=== PATIENT | female | born 1950 | race Caucasian/White ===

== ENCOUNTER → 2019-06-16 12:32 | Outpatient (CLI) | payer MEDICARE, SELFPAY ==
--- NOTE | 2019-06-16 | DI.US.S_ITS ---
LIMITED ULTRASOUND OF RIGHT BREAST AND AXILLA: 06/16/2019 CLINICAL: Palpable right breast lump. Comparison is made to exams dated: 06/16/2019 mammogram - [facility], 06/17/2015 mammogram, 06/23/2013 mammogram, and 03/28/2011 mammogram - [facility]. Color flow and real-time ultrasound of the right breast axilla were performed on the areas of interest. There is a 1.5 cm x 1.4 cm x 1.4 cm oval mass with a circumscribed margin in the right breast at 9 o'clock middle depth. This oval mass is hypoechoic with a well-defined boundary and posterior acoustic shadowing. Color flow imaging demonstrates that there is no vascularity present. There also is a 1 cm x 0.6 cm x 1.1 cm oval mass with a circumscribed margin in the right breast at 1:30 o'clock middle depth. This oval mass is hypoechoic with a well-defined boundary and posterior acoustic enhancement. This correlates as palpated. Color flow imaging demonstrates that there is no vascularity present. Additionally, there is a 2 cm x 1 cm x 1.6 cm oval cyst with debris in the right breast at 1 o'clock middle depth. This oval cyst with debris is hypoechoic with a well-defined boundary and posterior acoustic enhancement. Color flow imaging demonstrates that there is no vascularity present. In addition, there is a 2.7 cm x 1.6 cm x 2.8 cm oval complicated cyst in the right breast at 7 o'clock in the retroareolar region. This oval complicated cyst is hypoechoic but of mixed echogenicity with a well-defined boundary. This correlates with mammography findings. Color flow imaging demonstrates that there is no vascularity present. In addition, there are multiple benign oval lymph nodes in the right axillary tail. These oval lymph nodes are of mixed echogenicity with fatty hilum. Color flow imaging demonstrates that there is no increase in vascularity. IMPRESSION: SUSPICIOUS OF MALIGNANCY The 1.5 cm x 1.4 cm x 1.4 cm oval mass in the right breast at 9 o'clock middle depth is at a moderate suspicion for malignancy. An ultrasound guided biopsy is recommended. The 1 cm x 0.6 cm x 1.1 cm oval mass in the right breast at 1:30 o'clock middle depth is at a low suspicion for malignancy. An ultrasound guided biopsy is recommended. The 2 cm x 1 cm x 1.6 cm oval cyst with debris in the right breast at 1 o'clock middle depth is consistent with a complicated cyst and is probably benign. A follow-up ultrasound in 6 months is recommended. The 2.7 cm x 1.6 cm x 2.8 cm oval complicated cyst in the right breast at 7 o'clock in the retroareolar region is consistent with a complicated cyst and is probably benign. A follow-up ultrasound in 6 months is recommended. The multiple oval lymph nodes in the right axilla are within normal size limits and appear benign. The findings were discussed with the patient at the conclusion of the study by Dr. Mccabe. This exam was interpreted at Station ID: [id number]. Electronically Signed By: Emanuel yang/:06/16/2019 15:12:32 letter sent: Biopsy Required Ultrasound BI-RADS: 4b Moderate suspicion of malignancy
--- NOTE | 2019-06-16 | DI.MG.S_ITS ---
BILATERAL DIGITAL DIAGNOSTIC MAMMOGRAM 3D/2D: 06/16/2019 CLINICAL: Right breast lump. Comparison is made to exams dated: 06/17/2015 mammogram, 06/23/2013 mammogram, and 03/28/2011 mammogram - [facility]. The tissue of both breasts is heterogeneously dense. This may lower the sensitivity of mammography. There is a 2 cm oval equal density mass with an obscured and circumscribed margin in the right breast at 12 o'clock anterior depth. There also is a 2.9 cm oval equal density mass with an obscured and circumscribed margin in the right breast central to the nipple anterior depth. No other significant masses, calcifications, or other findings are seen in either breast. IMPRESSION: INCOMPLETE: NEEDS ADDITIONAL IMAGING EVALUATION The 2 cm oval equal density mass in the right breast at 12 o'clock anterior depth is indeterminate. An ultrasound is recommended. The 2.9 cm oval equal density mass in the right breast central to the nipple anterior depth is indeterminate. An ultrasound is recommended. This exam was interpreted at Station ID: [id number]. NOTE: For mammograms, a report in lay terms will be sent to the patient. Approximately 15% of breast malignancies will not be visualized mammographically. In the management of a palpable breast mass, a negative mammogram must not discourage biopsy of a clinically suspicious lesion. Electronically Signed By: Emanuel yang/emma:06/16/2019 13:50:38 ACR BI-RADS Category 0: Incomplete [id number]
== END ==
PROVIDERS: Visit Provider Internal Medicine
DX: R92.8 Other abnormal and inconclusive findings on diagnostic imaging of breast (principal); N63.15 Unspecified lump in the right breast, overlapping quadrants; N63.12 Unspecified lump in the right breast, upper inner quadrant; N60.01 Solitary cyst of right breast
CPT/HCPCS: 76642; 77066; G0279

== ENCOUNTER → 2019-07-15 07:35 | Outpatient (CLI) | payer MEDICARE, SELFPAY ==
--- NOTE | 2019-07-15 | DI.US.S_ITS ---
MULTIPLE ULTRASOUND GUIDED BIOPSIES RIGHT BREAST USING VACUUM DEVICE WITH MARKING DEVICES INSERTED: 07/15/2019 CLINICAL: Right breast masses x 2. PATIENT CONSENT: Risks (minor bleeding, infection, vasovagal reaction and repeat procedure), benefits and alternatives were explained to the patient and written informed consent was obtained. Correlation is made to exams dated: 06/16/2019 ultrasound, 06/16/2019 mammogram - [facility], 06/17/2015 mammogram, and 06/23/2013 mammogram [facility]. An ultrasound guided biopsy using real-time ultrasound was performed for the mass located in the right breast at 1 o'clock posterior depth. The skin was prepped in the usual manner. Local anesthetic was administered to the access site. The abnormality was approached from the lateral aspect. A biopsy needle was placed adjacent to the abnormality under ultrasound guidance. Once the needle was documented to be in the correct location, six specimens were obtained using the Mammotome biopsy system. A clip was inserted into the biopsy cavity. The specimens were sent to the laboratory for pathological analysis. A second ultrasound guided biopsy using real-time ultrasound was performed for the mass located in the right breast at 9 o'clock posterior depth. The skin was prepped in the usual manner. Local anesthetic was administered to the access site. A biopsy needle was placed adjacent to the abnormality under ultrasound guidance. Once the needle was documented to be in the correct location, six specimens were obtained using the Mammotome biopsy system. A clip was inserted into the biopsy cavity. The specimens were sent to the laboratory for pathological analysis. IMPRESSION: ULTRASOUND GUIDED BIOPSY BENIGN Ultrasound guided biopsy of the mass in the right breast at 1 o'clock posterior depth was successful. Pathology indicates benign apocrine metaplasia (AM), fibrocystic changes (FC), and stromal fibrosis. Pathology results are concordant with imaging findings. Ultrasound guided biopsy of the mass in the right breast at 9 o'clock posterior depth was successful. Pathology indicates benign apocrine metaplasia (AM), fibrocystic changes (FC), and stromal fibrosis. Pathology results are concordant with imaging findings. A follow-up right ultrasound in 6 months is recommended to demonstrate stability of other probably benign lesions in the right breast at the 1:00 and 7:00 positions. This exam was interpreted at Station ID: [id number]. Morteza moscoso,angely/:07/22/2019 14:09:00
--- NOTE | 2019-07-15 | PATH_ITS ---
[facility] Accession Number: [id number] . 01 Material submitted: . PART A: breast - RIGHT BREAST MASS 1:30 6 CM FN PART B: breast - RIGHT BREAST MASS 9:00 4 CM FN . 02 Diagnosis: A. Right Breast Mass, 1:30, 6 cm from Nipple, Needle Core Biopsy: Benign breast parenchyma with fibrocystic changes consisting of cystic dilatation of terminal ductules, apocrine metaplasia, ductal hyperplasia without atypia, and stromal fibrosis. There are several foci of reactive change that could relate to previous instrumentation or a ruptured cyst lining. Negative for epithelial atypia, carcinoma in situ or malignancy. . B. Right Breast Mass, 9 o'clock, 4 cm from Nipple, Needle Core Biopsy: Benign breast parenchyma with fibrocystic changes consisting of cystic dilatation of terminal ductules, apocrine metaplasia, ductal hyperplasia without atypia, and stromal fibrosis. Foci suggestive of previous instrumentation or ruptured cyst are present. Negative for epithelial atypia, carcinoma in situ or malignancy. MRV 07/18/2019 1556 Local . 02 Comment: QA performed by Dr. Israel Campos. . 02 Electronically signed: . Rosy Stallworth MD, Pathologist NPI- [id number] . 01 Gross description: . Received two formalin-filled containers, both labeled with the patient's name: . A. In a container labeled #1. 1:30, the specimen is received with a plastic filter in container, sample loose in container and consists of six 0.1-0.3 cm, light yellow-loya, cylindrical-shaped portions of tissue which range in length from 1.0 cm to 1.8 cm. The specimen is entirely submitted in cassettes A1 and A2. B. In a container labeled #2. 9 o'clock, the specimen is received with a plastic filter in container, sample loose in container and consists of five 0.2-0.3 cm in diameter, light yellow-loya, rough, cylindrical shaped portions of tissue which range in length from 0.8 cm to 1.2 cm The specimen is entirely submitted in cassettes B1 and B2. . Collection date per requisition: 07/15/19. Collection time: Container A - 8:58 a.m.; container B - 9:15 a.m. Total fixation time: Approximately 41 hours. ([id number]) /[facility] 07/16/2019 0946 Local . 02 Pathologist provided ICD-10: N64.9 . 02 CPT . 610725, [id number] Performed at: [facility] [address] [id number] MD Emanuel Menendez MD Phone: [phone] Performed at: [facility] [address] [place], [place] [id number] MD Yvonne Kruse MD Phone: [phone]
--- NOTE | 2019-07-15 | DI.MG.S_ITS ---
UNILATERAL RIGHT DIGITAL DIAGNOSTIC MAMMOGRAM POST-NEEDLE BIOPSY: 07/15/2019 CLINICAL: Right breast mass. Comparison is made to exams dated: 06/16/2019 mammogram - [facility], 06/17/2015 mammogram, and 06/23/2013 mammogram - [facility]. The tissue of right breast is heterogeneously dense. This may lower the sensitivity of mammography. There is a marker clip in the appropriate position in the right breast at 1 o'clock posterior depth. This marker clip placement is at the biopsy site. There also is a marker clip in the appropriate position in the right breast at 9 o'clock posterior depth. This marker clip placement is at the biopsy site. IMPRESSION: POST PROCEDURE MAMMOGRAM FOR MARKER PLACEMENT There was a successful marker clip placement in the right breast at 1 o'clock posterior depth. There was a successful marker clip placement in the right breast at 9 o'clock posterior depth. This exam was interpreted at Station ID: [id number]. NOTE: For mammograms, a report in lay terms will be sent to the patient. Approximately 15% of breast malignancies will not be visualized mammographically. In the management of a palpable breast mass, a negative mammogram must not discourage biopsy of a clinically suspicious lesion. Electronically Signed By: Morteza moscoso/:07/15/2019 14:28:23 ACR BI-RADS Category Post-procedure mammogram for marker placement
== END ==
PROVIDERS: PCP Internal Medicine; Visit Provider Internal Medicine
DX: N60.81 Other benign mammary dysplasias of right breast (principal); N60.31 Fibrosclerosis of right breast
CPT/HCPCS: 19083; 19084; 77065

== ENCOUNTER → 2019-09-01 13:52 | Outpatient (CLI) | payer OTHER, SELFPAY ==
--- NOTE | 2019-09-01 | DI.RAD.S_ITS ---
PROCEDURE: XR THORACIC SPINE 2V INDICATIONS: FLANK PAIN/ABD PAIN TECHNIQUE: 2 views of the thoracic spine were acquired. COMPARISON: None. FINDINGS: Bones: No fractures or dislocations. No suspicious bony lesions. Multilevel degenerative endplate sclerosis and spurring. Diffuse facet arthropathy. Soft tissues: No paravertebral stripe thickening. IMPRESSION: No fracture. Mild diffuse discogenic changes. Dictated by: Morteza Mccabe M.D. on 09/01/2019 at 15:46 Approved by: Morteza Mccabe M.D. on 09/01/2019 at 15:49
--- NOTE | 2019-09-01 | DI.RAD.S_ITS ---
PROCEDURE: XR HIP W PEL IF DONE LT 2V INDICATIONS: FLANK PAIN/ABD PAIN TECHNIQUE: AP pelvis with lateral view(s) of the left hip(s). COMPARISON: None. FINDINGS: Bones: No fractures or dislocations. Pelvic ring appears intact. No suspicious bony lesions. Mild bilateral hip joint degeneration. Soft tissues: The visualized bowel gas pattern is normal. No suspicious soft tissue calcifications. IMPRESSION: Mild bilateral hip degeneration. If the patient's pain or other symptoms persist, consider further evaluation with MRI Dictated by: Morteza Mccabe M.D. on 09/01/2019 at 16:14 Approved by: Morteza Mccabe M.D. on 09/01/2019 at 16:15
--- NOTE | 2019-09-01 | DI.RAD.S_ITS ---
PROCEDURE: XR LUMBAR SPINE 2-3V INDICATIONS: FLANK PAIN/ABD PAIN TECHNIQUE: 3 views of the lumbar spine were acquired. COMPARISON: None. FINDINGS: Bones: No fracture or focal osseous destruction. Multilevel degenerative endplate sclerosis and spurring. Diffuse facet arthropathy. Mild levocurvature. Soft tissues: Overlying bowel gas pattern is normal. No suspicious soft tissue calcifications. IMPRESSION: No fracture identified. Mild lumbar spondylosis and facet disease Dictated by: Morteza Mccabe M.D. on 09/01/2019 at 15:45 Approved by: Morteza Mccabe M.D. on 09/01/2019 at 15:46
[2019-09-01 14:21] LABS: Add Manual Diff / Slide Review NO; Basophils Absolute Auto 100 /uL (0-100); Basophils Percent Auto 0.9 % (0-2); Eosinophils Absolute Auto 100 /uL (0-450); Hematocrit 41.7 % (36-46); Hemoglobin 14.2 g/dL (12.0-16.0); Lymphocytes Absolute Auto 1200 /uL (1100-4500); Lymphocytes Percent Auto 21.4 % (25-40); Mean Corpuscular Hemoglobin 28.9 PG (26-34); Monocytes Absolute Auto 300 /uL (0-900); Neutrophils Absolute Auto 4100 /uL (1500-7000); Neutrophils Percent Auto 70.7 % (50-75); Platelet Count 283 X10^3/uL (150-400); Red Blood Cell Count 4.91 X10^6/uL (4.0-5.2); Red Cell Distribution Width 14.1 % (11.6-14.8); White Blood Cell Count 5.8 X10^3/uL (4.5-11.0)
[2019-09-01 14:33] LABS: Alanine Aminotransferase 23 IU/L (<35); Albumin 4.8 g/dL (3.5-5.0); Albumin Globulin Ratio 1.5 (1.0-2.8); Alkaline Phosphatase 109 U/L (38-126); Amylase 46 U/L (30-110); Aspartate Aminotransferase 29 IU/L (14-36); Bilirubin Total 0.5 mg/dL (0.2-1.3); Blood Urea Nitrogen 16 mg/dL (7-17); Calcium 9.8 mg/dL (8.4-10.2); Carbon Dioxide 22 mmol/L (22-32); Chloride 107 mmol/L (98-107); Estimated Glomerular Filt Rate > 60.0 mL/min (>60); Globulin 3.2 g/dL (1.7-4.1); Glucose 105 mg/dL (80-110); HEMOLYSIS < 15 (0-50); Lipase 70 U/L (23-300); Sodium 140 mmol/L (137-145)
--- NOTE | 2019-09-01 14:42 | DI.CT.S_ITS ---
PROCEDURE: CT ABDOMEN PELVIS W CON INDICATIONS: FLANK PAIN/ABD PAIN TECHNIQUE: After the administration of oral and intravenous contrast, 5 mm thick sections acquired from the diaphragms to the symphysis. 5 mm thick coronal and sagittal reformats were performed. For radiation dose reduction, the following was used: automated exposure control, adjustment of mA and/or kV according to patient size. COMPARISON: None. FINDINGS: Image quality: Excellent. ABDOMEN: Lung bases: Lung bases are clear. Heart size is normal. Right breast 2.2 cm lesion is noted, image 1/2 and recommend correlation to recent mammographic and ultrasound studies. Solid organs: Liver is normal in size and enhancement. Gallbladder surgically absent. Biliary system is non-dilated. Pancreas enhances normally. Spleen is normal in size and enhancement. No adrenal nodules. No evidence of left-sided urinary obstruction. Left kidney is unremarkable. Bilateral moderate right hydroureteronephrosis related to a 4 mm calculus at the right ureterovesical junction on image 82/2. No bladder calculus is identified Peritoneum and bowel: Stomach, small bowel, and colon loops are normal in caliber and wall thickness. No free fluid or air. Normal appendix. Nodes and vessels: No retroperitoneal or mesenteric adenopathy. Aorta and inferior vena cava are normal in caliber. Miscellaneous: No ventral hernias. PELVIS: Genitourinary: Bladder wall thickness is normal. Miscellaneous: No inguinal hernias or adenopathy. Bones: No suspicious bony lesions. No vertebral body compression fractures. IMPRESSION: Mild to moderately obstructive right ureterovesical junction calculus as above Dictated by: Morteza Mccabe M.D. on 09/01/2019 at 16:27 Approved by: Morteza Mccabe M.D. on 09/01/2019 at 16:35
== END ==
PROVIDERS: PCP Internal Medicine; Visit Provider Internal Medicine
DX: R10.9 Unspecified abdominal pain (principal); R10.32 Left lower quadrant pain; S70.02XA Contusion of left hip, initial encounter; N20.1 Calculus of ureter; M47.816 Spondylosis without myelopathy or radiculopathy, lumbar region; M47.814 Spondylosis without myelopathy or radiculopathy, thoracic region; W19.XXXA Unspecified fall, initial encounter; Z90.49 Acquired absence of other specified parts of digestive tract
CPT/HCPCS: 36415; 72070; 72100; 73502; 74177; 80053; 82150; 83690; 85025; Q9967

== ENCOUNTER → 2019-11-16 19:51 | Outpatient (CLI) | payer OTHER, SELFPAY ==
--- NOTE | 2019-11-16 | DI.MRI.S_ITS ---
PROCEDURE: MR HEAD/BRAIN WO CON INDICATIONS: CONTUSION OF RIGHT EYELID AND PERIOCULAR AREA TECHNIQUE: Non-contrast axial T1 spin echo, axial T2 fast spin echo, sagittal and axial FLAIR, coronal T2 fast spin echo, axial gradient echo, axial diffusion and ADC through the brain. COMPARISON: None. FINDINGS: Image quality: Excellent. CSF spaces: Ventricles appear symmetric in size and shape. Basal cisterns are patent. No extra-axial fluid collections. Brain: No intracranial bleeds or mass effects. There is mild cerebral volume loss for age. There are moderate chronic small vessel ischemic changes in periventricular and subcortical white matter, as well as dariela. Brainstem appears normal. Diffusion-weighted images show no acute ischemic insults. No chronic ischemic insults. Normal intravascular flow voids are present. Skull and face: Calvarial bone marrow is normal in signal. Orbits are normal. Sinuses: Sinuses are clear. There is fluid in the right mastoids. A small mucus retention cyst is noted in the posterior oropharynx. IMPRESSION: 1. No acute intracranial abnormalities. 2. Cerebral volume loss and chronic microvascular ischemic changes. 3. Fluid in the right mastoids. Recommend clinical correlation for mastoiditis. Dictated by: Parth Mills M.D. on 11/17/2019 at 8:11 Approved by: Parth Mills M.D. on 11/17/2019 at 14:53
== END ==
PROVIDERS: PCP Internal Medicine; Referring Provider Internal Medicine; Visit Provider Internal Medicine
DX: S00.11XA Contusion of right eyelid and periocular area, initial encounter (principal); X58.XXXA Exposure to other specified factors, initial encounter
CPT/HCPCS: 70551

== ENCOUNTER → 2020-05-15 11:54 | Outpatient (CLI) | payer OTHER, SELFPAY ==
--- NOTE | 2020-05-15 | DI.MRI.S_ITS ---
PROCEDURE: MR KNEE LT WO CON INDICATIONS: Other tear of medial meniscus, current injury TECHNIQUE: Noncontrast sagittal PD fast spin echo and T2 fast spin echo with fat saturation, sagittal 3-D FLASH with fat saturation; coronal T1 spin echo and PD fast spin echo with fat saturation, and axial PD fast spin echo with fat saturation through the knee. COMPARISON: None. FINDINGS: Image quality: Excellent. Menisci: Medial extrusion of the medial meniscus is present. Amorphous high signal intensity within the medial meniscal body is present demonstrating inferior and superior articular surface extension. Radial tearing of the posterior horn medial meniscus at the meniscal root ligament insertion site. Lateral meniscus is intact. Cruciate ligaments: The anterior and posterior cruciate ligaments appear intact. Medial structures: The medial collateral ligament appears intact. Visualized portions of the pes anserinus tendons appear normal. No abnormal bursal fluid. Lateral structures: The lateral collateral ligament, long and short heads of the biceps femoris tendon appear intact. The popliteus tendon appears normal. Iliotibial band appears normal. Anterior structures: The quadriceps and patellar tendons appear intact. Patellar alignment is normal. No femoral trochlear dysplasia or ventral trochlear prominence. No edema in the infrapatellar fat pad. Bones and cartilage: No bone marrow contusions or fractures. There is mild tricompartmental periarticular osteophyte formation. Severe articular cartilage loss diffusely overlies the weight-bearing aspects of the medial femoral condyle and medial tibial plateau. Mild articular cartilage loss overlies the medial and lateral patellar facets. Joint space: There is a small knee joint effusion and a small Ley's cyst. Normal appearing synovial plicae are incidentally noted. IMPRESSION: 1. Tricompartmental osteoarthritis with associated articular cartilage loss. 2. Medial meniscal tearing and extrusion. 3. Knee joint effusion and Ley's cyst. Dictated by: Anita Elizondo M.D. on 05/15/2020 at 13:33 Approved by: Anita Elizondo M.D. on 05/15/2020 at 13:40
== END ==
PROVIDERS: PCP Internal Medicine; Referring Provider Internal Medicine; Visit Provider Internal Medicine
DX: S83.242A Other tear of medial meniscus, current injury, left knee, initial encounter (principal); M17.12 Unilateral primary osteoarthritis, left knee; M71.22 Synovial cyst of popliteal space [Baker], left knee; M25.462 Effusion, left knee; X58.XXXA Exposure to other specified factors, initial encounter
CPT/HCPCS: 73721

== ENCOUNTER → 2020-07-03 11:39 | Outpatient (CLI) | payer OTHER, SELFPAY ==
--- NOTE | 2020-07-03 11:58 | DI.CT.S_ITS ---
PROCEDURE: CT SINUS SCREEN WO CON INDICATIONS: FACIAL PAIN TECHNIQUE: Noncontrast 3.0 mm axial images acquired from the frontal sinuses to the mid-sella, with coronal and sagittal reformats. For radiation dose reduction, the following was used: automated exposure control, adjustment of mA and/or kV according to patient size. COMPARISON: [facility], MR, MR HEAD/BRAIN WO CON, 11/16/2019, 20:01. FINDINGS: Image quality: Excellent. Maxillary Sinuses: No bony remodeling or destruction. Sinuses are clear. Ethmoid Air Cells: No bony remodeling or destruction. Sinuses are clear. Sphenoid Sinuses: No bony remodeling or destruction. Sinuses are clear. Frontal Sinuses: No bony remodeling or destruction. Sinuses are clear. Ostiomeatal Complexes: Ostiomeatal complexes are patent. No Marisel cells. Miscellaneous: Visualized intra-orbital contents are normal. No jazmine bullosa or paradoxical turbinate curvature. No nasal septal deviation. Moderate right-sided mastoid air cell fluid can be seen. IMPRESSION: No significant paranasal sinus abnormality is seen in this patient with a presenting history of facial pain. Moderate right mastoid air cell fluid can again be seen. Dictated by: Masood Prajapati M.D. on 07/03/2020 at 11:41 Approved by: Masood Prajapati M.D. on 07/03/2020 at 11:42
== END ==
PROVIDERS: PCP Internal Medicine; Referring Provider Internal Medicine; Visit Provider Internal Medicine
DX: R51.9 Headache, unspecified (principal)
CPT/HCPCS: 70486

== ENCOUNTER → 2020-09-13 11:02 | Outpatient (CLI) | payer OTHER, SELFPAY ==
[2020-09-13 11:09] LABS: RBC Urine None Seen (0-5/HPF)
[2020-09-13 12:16] LABS: Add Manual Diff / Slide Review NO; Basophils Absolute Auto 0 /uL (0-100); Basophils Percent Auto 0.8 % (0-2); Eosinophils Absolute Auto 100 /uL (0-450); Eosinophils Percent Auto 1.4 % (2-4); Hematocrit 43.2 % (36-46); Hemoglobin 14.3 g/dL (12.0-16.0); Lymphocytes Absolute Auto 1400 /uL (1100-4500); Lymphocytes Percent Auto 23.9 % (25-40); Mean Corpuscular HGB Conc 33.1 % (30-36); Mean Corpuscular Hemoglobin 28.5 PG (26-34); Mean Corpuscular Volume 86.1 fL (80-100); Monocytes Absolute Auto 300 /uL (0-900); Neutrophils Absolute Auto 4000 /uL (1500-7000); Neutrophils Percent Auto 67.9 % (50-75); Platelet Count 241 X10^3/uL (150-400); Red Blood Cell Count 5.02 X10^6/uL (4.0-5.2); White Blood Cell Count 5.8 X10^3/uL (4.5-11.0)
[2020-09-13 12:27] LABS: Appearance Urine UA CLEAR; Bilirubin Urine UA NEGATIVE (NEGATIVE); Color Urine UA YELLOW; Glucose Urine UA NEGATIVE (Negative); Ketones Urine UA TRACE (NEGATIVE); Leukocyte Esterase Urine UA NEGATIVE (NEGATIVE); Nitrite Urine UA NEGATIVE (Negative); Occult Blood Urine UA NEGATIVE (Negative); Protein Urine UA NEGATIVE (Negative); Specific Gravity Urine UA >=1.030 (1.000-1.035); Urobilinogen Urine UA 0.2 E.U./dL (0.2)
[2020-09-13 12:31] LABS: Hemoglobin A1C% w Est Avg Glu 5.8 % (4.0-6.0)
[2020-09-13 12:36] LABS: BUN Creatinine Ratio 25.6 (6-22); Blood Urea Nitrogen 20 mg/dL (7-17); Calcium 9.5 mg/dL (8.4-10.2); Carbon Dioxide 26 mmol/L (22-32); Chloride 107 mmol/L (98-107); Estimated Glomerular Filt Rate > 60.0 mL/min (>60); Glucose 140 mg/dL (80-110); HEMOLYSIS < 15 (0-50); Potassium 3.9 mmol/L (3.4-5.1); Sodium 140 mmol/L (137-145)
[2020-09-13 12:38] LABS: Amorphous Sediment Urine 1+; Calcium Oxalate Crystals Urine Few; Squamous Epithelial Cell Urine 5-10 /HPF (0-5/HPF); WBC Urine 0-1/HPF (0-5/HPF)
[2020-09-13 12:39] LABS: Bacteria Urine Moderate (10-30); Culture Indicated Urine Cult Not Indicated; Mucus Urine 1+ (Negative)
== END ==
PROVIDERS: PCP Internal Medicine; Referring Provider Orthopaedic Surgery; Visit Provider Orthopaedic Surgery
DX: Z01.818 Encounter for other preprocedural examination (principal); Z01.812 Encounter for preprocedural laboratory examination; R73.9 Hyperglycemia, unspecified; N39.0 Urinary tract infection, site not specified
CPT/HCPCS: 36415; 80048; 81001; 83036; 85025; 93005; 93010

== ENCOUNTER → 2020-10-06 10:40 | Outpatient (CLI) | payer OTHER, SELFPAY ==
[2020-10-06 14:18] LABS: COVID19 -Nasal RAPID Negative (Negative)
== END ==
PROVIDERS: PCP Internal Medicine; Visit Provider Nurse Practitioner
DX: Z01.812 Encounter for preprocedural laboratory examination (principal); Z20.822 Contact with and (suspected) exposure to COVID-19
CPT/HCPCS: 87635

== ENCOUNTER 2020-10-09 06:14 | Day surgery (SDC) | payer OTHER, SELFPAY ==
[2020-10-09] VITALS (22 sets, daily range): BP systolic 112–154; BP diastolic 43–111; PULSE 14–88; RESP 11–97; TEMP 33.4–36.1; O2SAT 2–99; BMI 40.0
--- NOTE | 2020-10-09 | DI.RAD.S_ITS ---
PROCEDURE: XR KNEE LT 1TO2V INDICATIONS: POST OP TOTAL KNEE TECHNIQUE: 3 views of the knee were acquired. COMPARISON: None. FINDINGS: Bones: No fractures or dislocations. No suspicious bony lesions. Knee arthroplasty has been performed. Soft tissues: No joint effusion. No suspicious soft tissue calcifications. IMPRESSION: Expected appearance following knee arthroplasty. Dictated by: Anita Elizondo M.D. on 10/09/2020 at 10:32 Approved by: Anita Elizondo M.D. on 10/09/2020 at 10:32
[2020-10-09] MEDS: ACETAMINOPHEN 325 MG TABLET 975 MG PO (07:08)
[2020-10-09] MEDS: GABAPENTIN 300 MG CAPSULE PO (07:08)
[2020-10-09] MEDS: CELECOXIB 200 MG CAPSULE 400 MG PO (07:08)
[2020-10-09] MEDS: VANCOMYCIN 1,000 MG/200 ML PIGGYBACK 200 MG IV (07:11)
--- NOTE | 2020-10-09 07:15 | SUR.PREOP ---
pt reports has chronic numbness and tingling in left foot. pt also reports has neuropathy in both feet.
--- NOTE | 2020-10-09 07:23 | PM.PREOP ---
Pre-operative Note COVID-19 COVID-19 status: Negative Interval Note History & Physical reviewed/Exam performed by Physician: Yes Changes to H&P: No
[2020-10-09] MEDS: CEFAZOLIN 2 GM/100 ML FROZ.PIGGY IV ×2 (07:52→16:35)
[2020-10-09] MEDS: TRANEXAMIC ACID 1,000 MG VIAL 1000 MG IV ×2 (08:19→09:31)
[2020-10-09] MEDS: BUPIVACAINE LIPOSOME 266 MG/20 ML VIAL INJ (08:20)
--- NOTE | 2020-10-09 08:24 | SUR.OPER ---
Supine on padded OR bed. Pillow under head, arms secured on padded armboards <90 degree abduction. Safety belt across torso. Non-operative leg secured with tape over blanket over lower leg. Operative leg secured in [employer] positioner. Foam padded brace at thigh of operative leg.
[2020-10-09] MEDS: BUPIVACAINE 0.5% W/ EPI (PF) 30 ML VIAL INJ (08:30)
[2020-10-09] MEDS: LACTATED RINGERS 1,000 ML 42 ML IV (09:34)
--- NOTE | 2020-10-09 10:01 | P.OP_ITS ---
Operative Date/Time/Diagnoses Date of procedure: 10/09/20 Time of procedure: 08:02 Pre-op diagnosis: Left knee osteoarthritis Post-op diagnosis: same Procedure & Clinicians Procedure: left total knee arthroplasty Same procedure as scheduled: Yes Indications: The patient has had progressively worsening left knee pain with radiographic changes consistent with arthritis. Non-operative management has failed and the patient has requested total knee replacement. The risks, benefits and alternatives to surgery were discussed with the patient prior to proceeding. Risks discussed included, but were not limited to, failure to relieve pain, stiffness, infection, nerve damage, deep venous thrombosis, pulmonary embolism, stroke, coma, heart attack, permanent paralysis and , as well as the potential need for eventual revision of the prosthetic. Surgeon: Trinidad Jackson Lower In Supervisor: Neftali Harden Anesthesia Type: Spinal Operative Notes Findings: severe left knee osteoarthritis, good stability Closure Type: primary Specimen(s): none sent Prosthetic devices, grafts, tissues, transplants, or devices: [employer] BCS 2 size 4 femur, size 3 tibia, +10 poly, 35 by 7-1/2 mm patella Applied: drain(s) Estimated Blood Loss (mL): 150 Blood products transfused: none Tourniquet time (min): 83 Procedure in detail: The patient was seen in the pre-operative area, where the patient identified the left knee as the operative site and this was marked with my initials. The patient received pre-operative antibiotics, and was taken to the operating room and placed on the operative table in the supine position. After satisfactory anesthesia, a maritime guard out was performed. The left leg was encircled with a tourniquet about the proximal thigh, and the leg was prepared from the toes to the tourniquet with ChloroPrep in the usual fashion and draped through sterile drapes. The leg was elevated and exsanguinated with Eschmark bandage and the tourniquet inflated to [300] mmHg pressure. The knee was approached through an approximately 18 cm incision centered over the patella and carried into the knee through a medial parapatellar arthrotomy. A portion of the medial and lateral meniscus was resected. Soft tissue was carefully mobilized around the patella the patella was measured with a caliper. Bone was resected from the patella and the patellar height was reconstituted with up an appropriate sized patellar component. A cover was then placed on the patella. A small amount of additional medial and lateral meniscus was resected. The distal femur was cut at 5?. A [+2] cut was used. It looked like an appropriate distal femoral cut and the cut was made without difficulty. An extramedullary guide was used for the tibial cut. 10 mm was resected off the least affected side.The tibia was prepared. The rotation was assessed. The patient was placed in extension residual medial and lateral meniscus as well as any residual bone was carefully resected. [No] additional tibia was resected. Hemostasis was achieved especially posteriorly. Additional local was injected into the posterior capsule. The extension gap was assessed and additional r eleases for gap balancing were performed as necessary. It was checked with the gap ski production supervisor. The femoral component was trial was placed and the notch was finished. The rotation was assessed and the appropriate size femoral guide was placed on the distal femur and finishing cuts were made. There is no evidence of notching. The anterior, posterior and chamfer cuts were then made. The posterior osteophytes and soft tissues were then removed. The posterior capsule was injected with part of a mixture of 60 ml 0.25% Marcaine mixed with 20 ml Exparel for post operative pain control. The remainder of this mixture was injected into the capsule and subcutaneous tissues during cement curing.l tibial and femoral components were then placed and the knee placed through a range of motion. Range of motion was [0-125], with good stability throughout the range. The trials were then removed, and the tibia was finished. The bone was prepared with pulsatile lavage, and dried with a sponge. Cement was applied and the final prosthetics placed. Excess cement was removed during and after cement curing. A brief Betadine soak was performed. After confirming there was no extruded cement posteriorly, the final tibial insert was placed. The knee was copiously irrigated and the tourniquet deflated. Hemostasis was obtained with the Bovie cautery. A drain was placed and brought out superolaterally. The capsule was closed with interrupted nonabsorbable suture. The subcutaneous layer was closed with barbed sutures, and the skin with a running 3-0 V-Lock suture and Surgical glue. An Aquacel Ag dressing was applied and the patient was taken to recovery having tolerated the procedure well. Complications: none Post-operative Condition: stable Disposition: Acute Care Plan for aftercare: The patient will be maintained on a standard total knee replacement protocol with weight bearing as tolerated. The patient will receive aspirin and sequential compression devices for DVT prophylaxis. The patient will be discharged home when safe for the home environment.
[2020-10-09] MEDS: ONDANSETRON 4 MG/2 ML INJ IV ×4 (10:18→21:36)
[2020-10-09] MEDS: DEXAMETHASONE 10 MG/ML VIAL IV (10:53)
[2020-10-09] MEDS: HALOPERIDOL 5 MG/ML VIAL 1 MG IV (10:53)
[2020-10-09] MEDS: PROMETHAZINE 25 MG SUPP PR (11:26)
--- NOTE | 2020-10-09 11:31 | SUR.PHASEI ---
Pt arrived c/o nausea, shortly thereafter started actively vomiting, per anesthesia pt had received 4 mg IV zofran just prior to rolling out of the OR. Additional 4 mg zofran IV given in PACU with no result. Called Dr. Pham (anesthesia provider) to request additional medication - orders for 10 mg decadron and 1 mg haldol given. Administered both decadron and haldol to pt. Pt continued to have active nausea and wretching. Called Dr. Pham to request additional medication, received verbal order for promethezine. 25 mg GA promethezine given in PACU. Pt currently sleeping and appears comfortable, nausea seems to have resolved at this time. Pt otherwise doing well, VSS, denied pain, L knee dressing C\D\I. Hemovac drain to remain clamped until 1200. Will transfer pt to room in acute care.
[2020-10-09] MEDS: LACTATED RINGERS 1,000 ML 100 ML IV ×2 (12:10→22:48)
--- NOTE | 2020-10-09 12:12 | PC.NURSE ---
Postop Note Patient to room 229 from PACU at 1200. Alert and oriented x3. Denies pain. Denies nausea at this time. Fan provided for patient as pt reports feeling flushed and is visibly diaphoretic. Pt reports this is not new for her. CMS intact to BLEs. ZINA dressing C/D/I, green light flashing . H/V drain clamped - orders to unclamp 2 hours after surgery (1200). H/V unclamped at this time. sPo2 94-96% on RA. RR in the 12-16 bpm. Oriented to room and to call light/bed/tv controls, placed call light within reach. Bed alarm on for safety. at bedside and updated. Belongings in room closet, declines need to lock up any valuables. Glasses at bedside.
--- NOTE | 2020-10-09 13:13 | PT-IP ANOTE ---
Received PT orders and reviewed chart. Attempted to see pt at 1305 but she was quite sleepy and unable to participate. Will attempt to see pt later in the afternoon.
--- NOTE | 2020-10-09 16:16 | PT-IP ANOTE ---
checked on pt and nurse stated that pt is still very groggy and unable to keep awake to be able to participate with PT. Nurse and PT check on pt and pt is asleep. will f/u tomorrow.
[2020-10-09] MEDS: IBUPROFEN 400 MG TABLET PO (16:35)
[2020-10-10] MEDS: CEFAZOLIN 2 GM/100 ML FROZ.PIGGY IV (00:06)
[2020-10-10] MEDS: METOCLOPRAMIDE 10 MG/2 ML INJ IV (00:52)
--- NOTE | 2020-10-10 00:59 | PC.NURSE ---
Patient with continued nausea, retching and emesis. Dr. Jackson updated on previous as well as Hemovac ouput since coming up to ICU (total of 360 mL). Orders for Reglan received and carried out. Patient otherwise stable, denies pain.
[2020-10-10 03:00] VITALS: BP 155/73; PULSE 99; RESP 18; TEMP 35.7; O2SAT 98
--- NOTE | 2020-10-10 05:01 | PC.NURSE ---
Addendum entered by Ines Pham R.N. 10/10/20 06:50: 430 informed by LIME KILN TENDER that during transfer to [facility] HV tubing pulled apart. Aseptically put back together - HV continued to drain without issue. Patient up to BS with SBA multiple times. Reports minimal pain - declines any analgesia. Tolerating ice chips with no further emesis. Will attempt clear liquid diet for breakfast. Original Note: At patient's request, was able to assist to bedside commode with walker twice. No nausea during both events, mildly soiled briefs on first attempt because patient was not able to hold urine, second attempt briefs were dry. Patient feels comfortable standing w/ walker and assistance.
[2020-10-10 05:09] LABS: Hematocrit 36.9 % (36-46); Hemoglobin 11.9 g/dL (12.0-16.0)
--- NOTE | 2020-10-10 07:05 | P.PN_ITS ---
Subjective Subjective Date Patient Seen: 10/10/20 Time Patient Seen: 07:05 Interval history: Patient not having any pain. Patient had pretty significant nausea vomiting after surgery. The vomiting has resolved however still having some nausea. No fever or chills. Able to get up in use the restroom several times yesterday evening. Patient has her home to assist her. She does have 4 steps into her house. Patient is motivated to discharge home today if safe to do so. Exam Vital Signs (past 8 hours): - 10/10/20 03:00 Temperature 96.3 F L Pulse Rate 99 H Respiratory Rate 18 Blood Pressure 155/73 H Pulse Oximetry 98 Oxygen Delivery Method Room Air Oxygen Flow Rate 0 Narrative Exam Narrative: 70-year-old female resting comfortably in bed in no apparent distress. Veronica dressing is clean, dry and intact. Motor functions intact distal left lower extremity. Sensation grossly intact to light touch distal left lower extremity. Both legs are warm and dry. Objective Labs Result Diagrams: 10/10/20 04:54 Labs: Laboratory Results - last 24 hr 10/09/20 10/10/20 12:10 04:54 Hgb 11.9 L Hct 36.9 Nasal Screen MRSA (PCR) Negative for mrsa PFSH Medical History Biceps muscle tear Concussion (~2019) Headache, migraine Hypothyroid Obesity Unilateral primary osteoarthritis, left knee Surgical History H/O laparoscopy History of History of cholecystectomy History of left inguinal hernia repair Status post right rotator cuff repair Social History household members: spouse Smoking Status: Never smoker alcohol intake: former Assessment & Plan Post-op Postoperative Procedures: Procedures Operation Date: 10/09/20 07:45 Actual Procedures Side Surgeon p Total Knee Arthroplasty Left Trinidad Jackson MD Postop day 1 status post left total knee arthroplasty. Patient progressing as expected. Mobilize with physical therapy. Standard total knee replacement protocol with weight-bearing as tolerated. Aspirin and SCDs for DVT pro phylaxis. Likely discharge home this afternoon. Quality VTE Deep Vein Thrombosis/Pulmonary Embolism Present on Admission: No
[2020-10-10 08:00] VITALS: BP 139/61; PULSE 90; RESP 18; TEMP 36.8; O2SAT 99
[2020-10-10] MEDS: estradioL 1 MG TABLET PO (08:52)
[2020-10-10] MEDS: LEVOTHYROXINE 25 MCG TABLET PO (08:53)
[2020-10-10] MEDS: ASPIRIN EC 81 MG TABLET PO (08:53)
--- NOTE | 2020-10-10 09:15 | PT.IIE ---
Current Diagnoses Unilateral primary osteoarthritis, left knee (10/09/20) Surgery Performed Operation Date: 10/09/20 07:45 Actual Procedures p Total Knee Arthroplasty(Left) - Trinidad Jackson MD Surgical History (Last Reviewed 10/10/20 @ 07:06 by Neftali Harden PA-C) H/O laparoscopy History of History of cholecystectomy History of left inguinal hernia repair Status post right rotator cuff repair Medical History (Last Reviewed 10/10/20 @ 07:06 by Neftali Harden PA-C) Biceps muscle tear Concussion (~2019) Headache, migraine Hypothyroid Obesity Unilateral primary osteoarthritis, left knee Physical Therapy Inpatient Evaluation/Re-Eval M1 PT/OT-IP Prior Functional Status Start: 10/09/20 12:38 Freq: NEEDED Status: Active Protocol: Document 10/10/20 09:15 AB (Rec: 10/10/20 10:57 AB [id number]) Medical Review Prior Functional Status Medical History Reviewed Yes Communication able to make needs known Mobility and Gait pt stated that she is independent with all mobilities and ambulation without AD Social History Household Members spouse Living Arrangements House Number of Floors (Floors) One Floor Number of Stairs To Enter/Railing? 4 steps with R rail to enter Home Environment Standard Height Toilet,Walk in Shower,Built-In Shower Seat Home Equipment Front Wheel Walker,Raised Toilet Seat Without Armrests, Hand Held Shower,Grab Bars In Shower Additional Social History Comment pt stated that her sister-in- law will also be coming to assist her M2 PT-IP Current Condition Start: 10/09/20 12:38 Freq: NEEDED Status: Active Protocol: Document 10/10/20 09:15 AB (Rec: 10/10/20 10:57 AB [id number]) Physical Therapy Current Condition Current Condition Evaluation Date 10/10/20 Treatment Diagnosis s/p L TKA; difficulty in walking Onset Date 10/09/20 Weight Bearing Status Weight Bearing Status Weight Bear as Tolerated Allowed Weight Bearing Amount (enter % LLE WBAT or #) (%) M3 PT-IP Subjective Start: 10/09/20 12:38 Freq: NEEDED Status: Active Protocol: Document 10/10/20 09:15 AB (Rec: 10/10/20 10:57 AB [id number]) Subjective Physical Therapy Visit Type Type Initial Evaluation Visit Start Time 09:15 Visit Stop Time 10:13 Total Visit Minutes 58 Number of COLLABORATING SUPERVISING PHYSICIAN Visits 0 Physical Therapy Visit Comments Patient Comments pt is agreeable to do PT Therapy Pain Assessment Pain When Pain Assessed At Rest Pain Present Pain Present Pain Reported Location Left Knee Intensity 2 Scale Used Numeric (0 - 10) Pain Management Techniques Apply Cold,Modification of Treatment,Re-positioning, Timing of Activity with Medications M4 PT-IP Mobility and Gait Start: 10/09/20 12:38 Freq: NEEDED Status: Active Protocol: Document 10/10/20 09:15 AB (Rec: 10/10/20 10:57 AB [id number]) PT-Bed Mobility Assessment Supine to Sit Supine to Sit Standby Assistance PT-Transfer Assessment Sit to and From Stand Sit to and from Stand Standby Assistance,Contact Guard Assistance,1 Person Assistance Equipment Transfer Assistive Device Gait Belt,Front Wheeled Walker Orthotic/Prosthetic Devices or Brace: No Transfers Transfer Destination Chair Transfer Technique ambulated using FWW Transfer Ability Level of Assist Standby Assistance,Contact Guard Assistance,1 Person Assistance,Use of Upper Extremities Comments Mobility Comments completed heel slides in bed prior to mobility. completed supine to sit SBA and cues. pt was able to sit on EOB but with increase c/o L knee pain. completed sit to stand SBA to CGA and ambulated in room ~ 25 ft using FWW SBA to CGA. agreed to do stairs. pt ambulated in the hallway using FWW SBA ~ 75 ft . educated on how to do stairs. completed with SBA to CGA without cues. educated on how to do car transfers and HEP. pt without further concerns. stated that her spouse will be able to assist her and does not need any training. Gait Assessment Gait Gait Assistance Required: Standby Assistance,Contact Guard Assist Distance (Feet) 75 Able to Maintain Weight Bearing Status Yes During Gait Assistive Devices Assistive Device Gait Belt,Front Wheeled Walker Orthotic/Prosthetic Devices or Brace: No Gait Deviations General Gait Pattern Antalgic,Decreased Stride Length,Decreased Feet Clearance Factors Limiting Gait Function Factors Limiting Gait Function Decreased Activity Tolerance, Decreased Strength,Limited Range of Motion,Pain,Poor Balance,Poor Safety Awareness Comments Gait Comments pls refer to mobility section for details Stair Climbing Assessment Evaluation Level of Assist On Stairs Contact Guard Assistance Devices Stair Climbing Assistive Devices Right Railing Technique/Endurance Stair Climbing Direction Ascend and Descend Stair Climbing Technique Step to Step Number of Steps Climbed 3 Query Text: Stair Climbing Set # Repetitions (reps) 1 PT-Balance Assessment Sitting Balance and Reactions Static Sitting Balance Ability Good Dynamic Sitting Balance Ability Good Standing Balance and Reactions Static Standing Balance Ability Fair Dynamic Standing Balance Ability Fair Device Used FWW M5 PT-IP Objective Assessments Start: 10/09/20 12:38 Freq: NEEDED Status: Active Protocol: Document 10/10/20 09:15 AB (Rec: 10/10/20 10:57 [id number]) Orientation Orientation/Cognition Level of Alertness Alert Orientation Name,Place,Situation Language Function Ability No Deficits Noted Gross Range of Motion Lower Extremity ROM Assessment Left Impaired Impairments L knee flexion: ~ 40 degrees with pain limiting movement Strength Lower Extremity Strength Assessment Left Impaired Hip 4-/5 Knee 4-/5 Coordination Assessment Gross Coordination Gross Coordination WNL Sensation Assessment Sensation Gross Sensation Right LE Impaired,Left LE Impaired Comments Sensation Comments stated chronic bilateral feet neuropathy Muscle Tone Muscle Tone WNL Yes M6 PT-IP Treatment Start: 10/09/20 12:38 Freq: NEEDED Status: Active Protocol: Document 10/10/20 09:15 AB (Rec: 10/10/20 10:57 AB [id number]) Physical Therapy Treatment Exercises Exercises Heel Slides Education Education Provided Precautions,Weight Bearing Status,Post-Op Packet,Safety M7 PT-IP Assessment and Plan Start: 10/09/20 12:38 Freq: NEEDED Status: Active Protocol: Document 10/10/20 09:15 AB (Rec: 10/10/20 10:57 [id number]) PT Summary Assessment and Plan Potential Rehabilitation Potential Good Status of Condition at Evaluation Stable Summary Impairments Pain,ROM,Strength,Balance, Coordination,Sensation,Bed Mobility,Transfers,Gait, Activity Tolerance Assessment Summary pt requiring SBA to CGA with mobility and will have her spouse and [id number] to assist her at home. pt stated that she is set up for outpt PT. pt may go home when medically stable. Goals Bed Mobility Goal Independent Transfer Goal Independent,Front Wheeled Walker Gait Goal Independent,Front Wheel Walker Gait Distance 150 Other Goals up/down 4 steps R rail ascending SBA Days to Meet Goals 3 Frequency of Treatment Frequency Of Treatment Twice a Day Treatment Plan Physical Therapy Treatment Plan Bed Mobility Training,Transfer Training,Gait Training, Therapeutic Exercise,Balance Retraining,Post Op Education, Discharge Planning,Hot or Cold Pack,Neuromuscular Re-ed, Coordination Retraining,Manual Therapy Other Recommendations and Next Treatment ambulation, stair climbing Focus Recommendations To Nursing Amount of Assist Needed 1 Person Assist Discharge Recommendations PT Discharge Recommendations Home with Assistance, Outpatient PT Transportation Needs at Discharge Private Vehicle
[2020-10-10] MEDS: ACETAMINOPHEN 325 MG TABLET 650 MG PO (09:47)
[2020-10-10] MEDS: IBUPROFEN 400 MG TABLET PO (09:48)
--- NOTE | 2020-10-10 13:16 | PM.DS.1 ---
History of Present Illness History of Present Illness Date Patient Seen: 10/10/20 Time Patient Seen: 13:17 Chief complaint: OPB Narrative: See progress note Discharge Providers Provider Discharge Date: 10/10/20 Primary care physician: Gretchen Napier MD Consults: 10/09/20 12:09 Consult to Discharge Planning Routine Comment: Consult to Physical Therapy Evaluate & Treat Comment: Physician Instructions: postop TKA protocol Consult to Respiratory Therapy Evaluate & Treat Comment: Physician Instructions: Evaluate and treat Discharge provider: Neftali Harden PA-C Summary Hospital Course Discharge Diagnosis: Left knee osteoarthritis Hospital Course: left total knee arthroplasty Same procedure as scheduled: Yes Indications: The patient has had progressively worsening left knee pain with radiographic changes consistent with arthritis. Non-operative management has failed and the patient has requested total knee replacement. The risks, benefits and alternatives to surgery were discussed with the patient prior to proceeding. Risks discussed included, but were not limited to, failure to relieve pain, stiffness, infection, nerve damage, deep venous thrombosis, pulmonary embolism, stroke, coma, heart attack, permanent paralysis and , as well as the potential need for eventual revision of the prosthetic. Surgeon: Trinidad Jackson Press Hand Supervisor: Neftali Harden Anesthesia Type: Spinal Operative Notes Findings: severe left knee osteoarthritis, good stability Closure Type: primary Specimen(s): none sent Prosthetic devices, grafts, tissues, transplants, or devices: [employer] BCS 2 size 4 femur, size 3 tibia, +10 poly, 35 by 7-1/2 mm patella Applied: drain(s) Estimated Blood Loss (mL): 150 Blood products transfused: none Tourniquet time (min): 83 Patient admitted to the hospital for left total knee arthroplasty. Patient consented to the same. Patient taken to the operating room yesterday. Patient back in her room recovering well as in stable condition. Discharge home today in stable condition. Status at Discharge Cognitive/behavioral status at discharge: at baseline, oriented Functional status at discharge: uses cane/walker Overall status at discharge: patient is progressing back to baseline Time Spent with Patient Time spent: Less than 30 minutes Exam Vital Signs (past 8 hours): - 10/10/20 08:00 Temperature 98.2 F Pulse Rate 90 Respiratory Rate 18 Blood Pressure 139/61 Pulse Oximetry 99 Oxygen Delivery Method Room Air Oxygen Flow Rate 0 Narrative Exam Narrative: See progress note Objective Labs Result Diagrams: 10/10/20 04:54 Labs: Laboratory Results - last 24 hr 10/09/20 10/10/20 12:10 04:54 Hgb 11.9 L Hct 36.9 Nasal Screen MRSA (PCR) Negative for mrsa [facility] Medical History Biceps muscle tear Concussion (~2019) Headache, migraine Hypothyroid Obesity Unilateral primary osteoarthritis, left knee Surgical History H/O laparoscopy History of History of cholecystectomy History of left inguinal hernia repair Status post right rotator cuff repair Social History household members: spouse Smoking Status: Never smoker alcohol intake: former Discharge Assessment & Plan Assessment and Plan Assessment: Progressing as expected status post left total knee arthroplasty Plan of Treatment: Discharge home today in stable condition. Discharge Plan Discharge Plan Patient Disposition: Home Provider Discharge Comment: DC home today after cleared by PT Discharge orders & Medications Discharge Orders: Discharge (Order); Ordered 10/10/20 Ordered By: Neftali Harden Prescriptions: New acetaminophen 325 mg Tablet 650 mg PO TID Qty: 60 RF: 0 polyethylene glycol 3350 17 gram Powder In Packet 17 gm PO DAILY PRN (Reason: Constipation) Qty: 20 RF: 0 aspirin 81 mg Tablet,Delayed Release (Dr/Ec) 81 mg PO BID Qty: 60 RF: 0 ibuprofen 400 mg Tablet 400 mg PO Q4HR Qty: 60 RF: 0 docusate sodium [DOK] 100 mg Capsule 100 mg PO BID Qty: 20 RF: 0 ondansetron 4 mg Tablet,Disintegrating 4 mg PO Q4HR PRN (Reason: Nausea) Qty: 20 RF: 0 oxycodone 5 mg Tablet 5 mg PO Q3HR PRN (Reason: Pain, Moderate (4-6)) Qty: 40 RF: 0 Continued estradiol 1 mg Tablet 1 mg PO DAILY RF: 0 ascorbic acid (vitamin C) [Vitamin C] 500 mg Tablet 500 mg PO DAILY RF: 0 cholecalciferol (vitamin D3) [Vitamin D3] 25 mcg (1,000 unit) Capsule 25 mcg PO DAILY RF: 0 Multivitamin 50 Plus Tablet 1 tab PO DAILY RF: 0 levothyroxine [Tirosint] 25 mcg Capsule 25 mcg PO DAILY RF: 0 Trokendi XR 50 mg Capsule,Extended Release 24hr 50 mg PO DAILY RF: 0 vitamin B complex Capsule 1 cap PO DAILY RF: 0 zinc 50 mg Capsule 50 mg PO DAILY RF: 0 gabapentin 100 mg Tablet 100 mg PO BID RF: 0 Discontinued hydrocodone-acetaminophen 5-325 mg Tablet 1 tab PO Q4-6H PRN (Reason: Pain) RF: 0 Follow up/Referrals: Gretchen Napier MD [Primary Care Provider] - Trinidad Jackson MD [Physician] - (2 weeks) Diet/Activity/Treatments Diet: Diet as Tolerated Activity: WBAT Cold/Heat Therapy: ice as needed Skin/Wound/Dressing Care Report to your healthcare provider any signs of infection, such as:: chills, fever, unusual drainage and unusual redness Dressing: keep clean and dry Visit Report/Discharge Packet Instructions: DI for Knee Replacement, Oxycodone Stand Alone Forms: Surgery Discharge Discharge Data Primary Care Provider: Gretchen Napier Attending Provider: Trinidad Jackson Quality VTE Deep Vein Thrombosis/Pulmonary Embolism Present on Admission: No
--- NOTE | 2020-10-10 14:03 | CM.DANOTE ---
Patient is a 70 year old female who was admitted on 10/09/20 for LKA. Pt has REG PPO and [employer] M[employer] ADV for insurance and her PCP is Dr. Gretchen Napier. EMR was reviewed. Per Ortho , pt tolerated procedure well. Per Ortho PA, pt had sig N/V initially but vomiting has subsided and some residual nausea. Pt to ambulate more with PT this morning towards plan of d/c home with spouse today. Per PT, recommending safe d/c home with spouse assist and outpt PT. Per RN, no concerns at this time. No bedside DCP assessment performed at this time due to triage needs and no identified concerns. Plan: Patient to d/c home via spouse POV today and no SW needs at this time. BASILIO Estrada
== END 2020-10-10 12:59 | disposition home or self-care (01) ==
LOC: OR 06:15 → AC 06:16 → ICU 11:34
PROVIDERS: PCP Internal Medicine; Referring Provider Internal Medicine; Visit Provider Orthopaedic Surgery
PROC: 0SRD0JZ Replacement of Left Knee Joint with Synthetic Substitute, Open Approach (ICD-10-PCS; CPT 27447; principal; 2020-10-09 07:45)
DX: M17.12 Unilateral primary osteoarthritis, left knee (principal); E03.9 Hypothyroidism, unspecified; E66.01 Morbid (severe) obesity due to excess calories; Z68.41 Body mass index [BMI] 40.0-44.9, adult; G62.9 Polyneuropathy, unspecified
CPT/HCPCS: 27447; 36415; 73560; 85014; 85018; 87797; 97116; 97161; 97530; C1776; C9290; J0690; J1100; J1630; J2274; J2405; J2704; J2765

== ENCOUNTER 2020-12-10 18:26 | Emergency (ER) | payer OTHER, SELFPAY ==
[2020-10-09 12:27] VITALS: BMI 40.0
[2020-12-10] VITALS (7 sets, daily range): BP systolic 150–186; BP diastolic 68–91; PULSE 80–99; RESP 16–22; TEMP 36.3; O2SAT 97–100; BMI 38.4
--- NOTE | 2020-12-10 18:59 | ED_ITS ---
HPI - General Adult General Chief complaint: Headache Stated complaint: HEADACHE NAUSEA Time Seen by Provider: 12/10/20 18:50 Source: patient Mode of arrival: Ambulatory Limitations: no limitations History of Present Illness HPI narrative: Patient is a 70-year-old female. Approximately 1 year ago she sustained a head injury to the right side of her head. Since that time she has had occasional episodes of headaches and nausea. She has seen a neurologist for this. She is taking gabapentin for her symptoms. She states the next step in the workup is for her to see a high doctor but she is yet to do so. She states that today was the ?1st day I have been out ?and she states she thinks that she over did it. She arrived home today she started developed pain on the right side of her head. Described above her right eye that extends to the top of her head. She also has pain/numbness on the top of her right ear and also on the right side of her nose. She has not tried anything for symptoms prior to arriv al. She states that this is what her headache normally feels like. Related Data Home Medications Medication Instructions Recorded Confirmed Multivitamin 50 Plus 1 tab PO DAILY 10/08/20 10/09/20 Trokendi XR 50 mg PO DAILY 10/08/20 10/09/20 ascorbic acid (vitamin C) [Vitamin 500 mg PO DAILY 10/08/20 10/09/20 C] cholecalciferol (vitamin D3) 25 mcg PO DAILY 10/08/20 10/09/20 [Vitamin D3] estradiol 1 mg PO DAILY 10/08/20 10/09/20 gabapentin 100 mg PO BID 10/08/20 10/09/20 levothyroxine [Tirosint] 25 mcg PO DAILY 10/08/20 10/09/20 vitamin B complex 1 cap PO DAILY 10/08/20 10/09/20 zinc 50 mg PO DAILY 10/08/20 10/09/20 Previous Rx's Medication Instructions Recorded acetaminophen 650 mg PO TID #60 tab 10/10/20 aspirin 81 mg PO BID #60 tab 10/10/20 docusate sodium [DOK] 100 mg PO BID #20 cap 10/10/20 ibuprofen 400 mg PO Q4HR #60 tab 10/10/20 ondansetron 4 mg PO Q4HR PRN #20 tab 02/10/21 oxycodone 5 mg PO Q3HR PRN #40 tab 10/10/20 polyethylene glycol 3350 17 gm PO DAILY PRN #20 ea 10/10/20 Allergies Allergy/AdvReac Type Severity Reaction Status Date / Time No Known Drug Allergies Allergy Verified 10/09/20 06:39 Review of Systems Constitutional Constitutional: Denies fatigue, Denies fever(s), Reports headache(s) and Denies weakness Eyes Eyes: Denies blurry vision and Denies change in vision ENT Ears, Nose, Mouth, and Throat: Denies vertigo, Denies dizziness, Reports headache(s), Denies disequilibrium, Denies sinus pressure and Denies sore throat Cardiovascular Cardiovascular: Denies chest pain, Denies rapid heart rate and Denies dyspnea Respiratory Respiratory: Denies cough and Denies dyspnea Gastrointestinal Gastrointestinal: Denies abdominal pain, Reports nausea and Denies vomiting Genitourinary Genitourinary: Denies dysuria Genitourinary: Denies dysuria Musculoskeletal Musculoskeletal: Denies arthralgias, Denies myalgias and Denies tingling Integumentary/Breasts Skin/Breast: Denies lesions and Denies rash Neurologic Neurologic: Denies confusion, Denies vertigo, Denies dizziness, Reports headache(s), Denies tingling, Denies disequilibrium and Denies weakness Psychiatric Psychiatric: Denies confusion Endocrine Endocrine: Denies fatigue Hematologic/Lymphatic On Anticoagulants: No Allergic/Immunologic Allergic/Immunologic: Denies urticaria Patient History Medical History Biceps muscle tear Concussion (~2019) Headache, migraine Hypothyroid Obesity Unilateral primary osteoarthritis, left knee Surgical History H/O laparoscopy History of History of cholecystectomy History of left inguinal hernia repair Status post right rotator cuff repair Social History household members: spouse Smoking Status: Never smoker alcohol intake: former Smoking Status: Never smoker alcohol intake frequency: 0-2 drinks per day Substance Use Type: does not use Exam Initial Vital Signs Initial Vital Signs: Vital Signs Temperature 97.3 F L 12/10/20 18:47 Pulse Rate 99 H 12/10/20 18:47 Respiratory Rate 16 12/10/20 18:47 Blood Pressure 186/91 H 12/10/20 18:47 Pulse Oximetry 98 12/10/20 18:47 Const General: cooperative, healthy appearing, comfortable and well developed [facility] Head: normal to inspection and normocephalic Ears: hearing grossly normal bilaterally Nose: external nose normal Face and sinus: normal facial exam Eyes General: appearance normal, both eyes and all related structures Resp Effort & Inspection: normal respiratory effort Auscultation: clear to auscultation bilaterally Cardio Rate: regular rate Rhythm: regular rhythm GI Inspection: non-distended Skin Lesions: no lesions Rashes: no rashes Neuro General: patient alert, patient awake and patient oriented x3 Cranial Nerves: CN's II-XI intact bilaterally Cognition: normal cognition Speech: speech normal Gait: normal gait Extrem General: normal to inspection, capillary refill normal and No edema Psych Appearance: grossly normal and well kempt Course Orders Ordered: Discontinued Medications Acetaminophen (Acetaminophen 325 Mg Tablet) 650 mg PO NOW ONE Stop: 12/10/20 19:01 Last Admin: 12/10/20 19:34 Dose: 650 mg Documented by: SARA Sodium Chloride (Normal Saline 0.9%) 1,000 mls @ 1,000 mls/hr IV BOLUS ONE Stop: 12/10/20 19:59 Last Infusion: 12/10/20 20:40 Dose: 0 mls/hr Documented by: Admin: 12/10/20 19:36 Dose: 1,000 mls/hr Documented by: SARA Ketorolac Tromethamine (Ketorolac 60 Mg/2 Ml Vial) 30 mg IV NOW ONE Stop: 12/10/20 19:01 Last Admin: 12/10/20 19:35 Dose: 30 mg Documented by: SARA Ondansetron HCl (Ondansetron 4 Mg/2 Ml Inj) 4 mg IV NOW ONE Stop: 12/10/20 19:01 Last Admin: 12/10/20 19:35 Dose: 4 mg Documented by: SARA Vital Signs Vital signs: Vital Signs - 8 hr 12/10/20 20:52 Pulse Rate 80 Respiratory Rate 16 Blood Pressure 162/73 H Pulse Oximetry 100 Medical Decision Making MDM Narrative Medical decision making narrative: Patient has no rash concerning for zoster. Her headache today is the same headache in character that she has had the past. She is afebrile. No neck pain. No trauma. She reports a tremendous improvement of her symptoms after medications received here in the ER. I have low suspicion for intracranial hemorrhage. Low suspicion for meningitis. I feel we can hold on radiologic studies for now. I suspect that her symptoms are post concussive related. She was given instructions with regard to follow-up and return precautions. She expressed understanding agreement. Discharge Plan Departure Patient Disposition: Home Clinical Impression: Headache, Postconcussion syndrome Instructions: DI for Postconcussion Syndrome, DI for Headache Activity Restrictions/Additional Instructions: Continue all of your medications as directed. Keep all of your scheduled medical appointments. Contact your primary provider for a follow-up. Return to the emergency department for any new or worsening symptoms Prescriptions: No Action estradiol 1 mg Tablet 1 mg PO DAILY RF: 0 ascorbic acid (vitamin C) [Vitamin C] 500 mg Tablet 500 mg PO DAILY RF: 0 cholecalciferol (vitamin D3) [Vitamin D3] 25 mcg (1,000 unit) Capsule 25 mcg PO DAILY RF: 0 Multivitamin 50 Plus Tablet 1 tab PO DAILY RF: 0 levothyroxine [Tirosint] 25 mcg Capsule 25 mcg PO DAILY RF: 0 Trokendi XR 50 mg Capsule,Extended Release 24hr 50 mg PO DAILY RF: 0 vitamin B complex Capsule 1 cap PO DAILY RF: 0 zinc 50 mg Capsule 50 mg PO DAILY RF: 0 gabapentin 100 mg Tablet 100 mg PO BID RF: 0 acetaminophen 325 mg Tablet 650 mg PO TID Qty: 60 RF: 0 polyethylene glycol 3350 17 gram Powder In Packet 17 gm PO DAILY PRN (Reason: Constipation) Qty: 20 RF: 0 aspirin 81 mg Tablet,Delayed Release (Dr/Ec) 81 mg PO BID Qty: 60 RF: 0 ibuprofen 400 mg Tablet 400 mg PO Q4HR Qty: 60 RF: 0 docusate sodium [DOK] 100 mg Capsule 100 mg PO BID Qty: 20 RF: 0 ondansetron 4 mg Tablet,Disintegrating 4 mg PO Q4HR PRN (Reason: Nausea) Qty: 20 RF: 0 oxycodone 5 mg Tablet 5 mg PO Q3HR PRN (Reason: Pain, Moderate (4-6)) Qty: 40 RF: 0 Referrals: Gretchen Napier MD [Primary Care Provider] -
[2020-12-10] MEDS: ACETAMINOPHEN 325 MG TABLET 650 MG PO (19:34)
[2020-12-10] MEDS: ONDANSETRON 4 MG/2 ML INJ IV (19:35)
[2020-12-10] MEDS: KETOROLAC 60 MG/2 ML VIAL 30 MG IV (19:35)
[2020-12-10] MEDS: SODIUM CHLORIDE 0.9% 1,000 ML 1000 ML IV (19:36)
== END 2020-12-10 20:53 | disposition home or self-care (01) ==
PROVIDERS: Emergency Provider Emergency Medicine; PCP Internal Medicine
DX: F07.81 Postconcussional syndrome (principal); R51.9 Headache, unspecified
CPT/HCPCS: 36415; 96361; 96374; 96375; 99284; J1885; J2405

== ENCOUNTER → 2021-10-15 12:59 | Outpatient (CLI) | payer OTHER, SELFPAY ==
[2020-10-09 12:27] VITALS: BMI 40.0
--- NOTE | 2021-10-15 | DI.MG.S_ITS ---
BILATERAL DIGITAL DIAGNOSTIC MAMMOGRAM 3D/2D: 10/15/2021 CLINICAL: Right breast lump. Comparison is made to exams dated: 06/16/2019 mammogram - [facility], 06/17/2015 mammogram, and 06/23/2013 mammogram - [facility]. The tissue of both breasts is heterogeneously dense. This may lower the sensitivity of mammography. In the area of palpable abnormality there is an approximately 3.7 x 3.0 cm subareolar mass which corresponds with the palpable abnormality. A similar finding which was ultrasound proven to be a cyst was seen on prior mammogram on 06/16/2019 but is larger on today's mammogram. There are multiple additional bilateral well-circumscribed masses which are unchanged compared to the prior mammogram on 06/16/2019. IMPRESSION: INCOMPLETE: NEEDS ADDITIONAL IMAGING EVALUATION Recommend ultrasound of the palpable abnormality in the right breast for further evaluation. US will be performed and dictated separately. This exam was interpreted at Station ID: [id number]. NOTE: For mammograms, a report in lay terms will be sent to the patient. Approximately 15% of breast malignancies will not be visualized mammographically. In the management of a palpable breast mass, a negative mammogram must not discourage biopsy of a clinically suspicious lesion. Electronically Signed By: Porfirio Storey acr/:10/15/2021 15:12:41 letter sent: Normal Exam ACR BI-RADS Category 0: Incomplete 3340F
--- NOTE | 2021-10-15 | DI.US.S_ITS ---
ULTRASOUND OF RIGHT BREAST: 10/15/2021 CLINICAL: Palpable right breast lump. Comparison is made to exams dated: 06/16/2019 mammogram - [facility], 06/17/2015 mammogram, and 06/23/2013 mammogram - [facility]. The tissue of both breasts is heterogeneously dense. This may lower the sensitivity of mammography. In the right breast 7 o'clock position retroareolar, there is a large cyst with debris measuring 4.1 x 2.3 x 4.3 cm. This is similar in appearance but larger compared to prior ultrasound on 06/16/2019. A smaller cyst measuring 0.8 x 0.7 x 0.7 cm is seen adjacent. In the 1 o'clock position 10 cm from the nipple there is dense tissue with a complicated cyst measuring 0.9 x 0.6 x 0.6 cm. Additionally in the 1 o'clock position 2 cm from the nipple there is a cyst measuring 2.9 x 1.2 x 2.5 cm. IMPRESSION: BENIGN Multiple bilateral benign cysts as described above. Recommend return to screening mammogram. This exam was interpreted at Station ID: [id number]. NOTE: For mammograms, a report in lay terms will be sent to the patient. Approximately 15% of breast malignancies will not be visualized mammographically. In the management of a palpable breast mass, a negative mammogram must not discourage biopsy of a clinically suspicious lesion. Electronically Signed By: Porfirio Storey acr/:10/15/2021 15:18:59 letter sent: Normal Exam Ultrasound BI-RADS: 2 Benign
== END ==
PROVIDERS: PCP Family Medicine; Referring Provider Family Medicine; Visit Provider Family Medicine
DX: R92.8 Other abnormal and inconclusive findings on diagnostic imaging of breast (principal); N60.01 Solitary cyst of right breast
CPT/HCPCS: 76642; 77066; G0279

== ENCOUNTER 2022-07-06 12:22 | Observation (INO) | payer OTHER, SELFPAY ==
[2020-10-09 12:27] VITALS: BMI 40.0
[2022-07-06] VITALS (18 sets, daily range): BP systolic 135–202; BP diastolic 67–80; PULSE 68–82; RESP 11–26; TEMP 35.8–36.6; O2SAT 94–100; BMI 41.1; BMI 40.1
--- NOTE | 2022-07-06 12:23 | DI.CT.S_ITS ---
PROCEDURE: CT ANGIO HEAD AND NECK INDICATIONS: code stroke TECHNIQUE: Pre-contrast 4.5 mm thick sections acquired from the foramen magnum to the vertex. After the administration of intravenous contrast, 1 mm thick sections acquired from the aortic arch through the [place]. Post-contrast 4.5 mm thick sections then re-acquired from the foramen magnum to the vertex. For radiation dose reduction, the following was used: automated exposure control, adjustment of mA and/or kV according to patient size. COMPARISON: [facility], CT, CT STROKE, 07/06/2022, 13:26. FINDINGS: Image quality: Excellent. HEAD CT ANGIOGRAPHY: Anterior circulation: Intracranial internal carotid arteries are normal in size and flow. The flow within the paired anterior cerebral arteries is normal and symmetric. The flow within the middle cerebral arteries is normal and symmetric. The anterior communicating artery is seen. No aneurysms are seen. Posterior circulation: Visualized portions of the vertebral arteries demonstrate normal caliber, and join to form a normal appearing basilar artery. Flow within the posterior cerebral arteries is normal and symmetric. No aneurysms are seen. NECK CT ANGIOGRAPHY: Carotid system: The great vessels demonstrate a conventional anatomy as they arise from the aortic arch. The origins of the common carotid arteries appear patent. The common carotid arteries demonstrate normal caliber and courses. The bifurcation regions are both widely patent. The internal carotid arteries demonstrate normal calibers and courses. Posterior circulation: The origins of the vertebral arteries both appear widely patent. The more superior extracranial portions of both vertebral arteries also demonstrate normal courses and calibers. They join to form a normal appearing basilar artery. Soft tissues: Visualized neck soft tissues demonstrate no suspicious abnormalities. Bones: No suspicious bony lesions. Visualized cervical spine appears normally aligned. Degenerative disc disease and arthropathy in the cervical spine noted IMPRESSION: 1. Unremarkable CT angiogram of the head neck without large vessel occlusion, aneurysm or vascular malformation. 2. Incidental degenerative disc disease in the smooth mid cervical spine results in straightening the normal cervical lordosis Any quantitative measurements of stenosis were performed using NASCET criteria. Approved by: Darshan Benz M.D. on 07/06/2022 at 13:07
--- NOTE | 2022-07-06 12:23 | DI.CT.S_ITS ---
PROCEDURE: CT STROKE INDICATIONS: code stroke TECHNIQUE: Noncontrast 4.5 mm thick angled axial sections acquired from the foramen magnum to the vertex, with coronal reformats. For radiation dose reduction, the following was used: automated exposure control, adjustment of mA and/or kV according to patient size. COMPARISON: [facility], MR, MR HEAD/BRAIN WO CON, 11/16/2019, 20:01. FINDINGS: Image quality: Mild streak artifact can be seen through the skull base. CSF spaces: Basal cisterns are patent. No extra-axial fluid collections. The ventricles are symmetric in size and shape. Brain: No intracranial bleeds or masses. There is cerebral volume loss for age, with resultant ventricular and sulcal prominence. There are periventricular and deep white matter chronic small vessel ischemic changes. There is intracranial internal carotid artery atherosclerosis. Skull and face: Calvarium and visualized facial bones appear intact, without suspicious lesions. Sinuses: Visualized sinuses and mastoids are clear. IMPRESSION: No acute intracranial hemorrhage is seen. No acute intracranial process is seen. If there is strong clinical suspicion for an acute stroke, please consider a brain MRI for further evaluation, as it is more sensitive (assuming that there is no contraindication to MRI). Note: Case discussed by telephone with Dr. Sarabia at 11:39 a.m. [place] time on July 06, 2022. This study fulfills neurological imaging criteria for inclusion or exclusion of acute stroke therapies based on available published neurological guidelines. Dictated by: Masood Prajapati M.D. on 07/06/2022 at 11:36 Approved by: Masood Prajapati M.D. on 07/06/2022 at 11:40
--- NOTE | 2022-07-06 12:44 | ED.NEUROSD ---
HPI - Neuro Symptoms/Deficit General Chief Complaint: Neuro Symptoms/Deficit Stated Complaint: stroke Time Seen by Provider: 07/06/22 12:23 Source: patient and EMS Mode of arrival: EMS Limitations: no limitations History of Present Illness HPI Narrative: Patient is a 72-year-old female. Reported history of low blood pressure. Also has a history of chronic migraines. Is brought in as a code stroke. Last known normal approximately 2 hours and 45 minutes prior to arrival here in the ER. Patient states that she was getting ready for bahai when she went out of the bedroom and tried to say something to her CT but nothing came out of her mouth. She also reported some tingling to her right cheek. She also stated that she had a visual ?aura? but that has resolved. She has no headache. She is never had any symptoms like this in the past with her headaches. She waited a period of time for her symptoms to improve and they did not so the patient's contacted their general practitioner who instructed her to take 2 baby aspirin which she did and come into the emergency department. She arrives by EMS. She denies chest pain, shortness of breath, abdominal pain, nausea vomiting, urinary symptoms, rashes, vision changes, headache. Related Data Home Medications Medication Instructions Recorded Confirmed ascorbic acid (vitamin C) 500 mg 500 mg PO DAILY 10/08/20 10/09/20 tablet (Vitamin C) cholecalciferol (vitamin D3) 25 25 mcg PO DAILY 10/08/20 10/09/20 mcg (1,000 unit) capsule (Vitamin D3) estradiol 1 mg tablet 1 mg PO DAILY 10/08/20 10/09/20 gabapentin 100 mg tablet 100 mg PO BID 10/08/20 10/09/20 levothyroxine 25 mcg capsule 25 mcg PO DAILY 10/08/20 10/09/20 (Tirosint) gnovbionlruo-idcbkrbq-ktvntm 1 tab PO DAILY 10/08/20 10/09/20 tablet (Multivitamin 50 Plus tablet) topiramate 50 mg capsule,extended 50 mg PO DAILY 10/08/20 10/09/20 release 24 hr (Trokendi XR) vitamin B complex 1 cap PO DAILY 10/08/20 10/09/20 zinc 50 mg capsule 50 mg PO DAILY 10/08/20 10/09/20 Previous Rx's Medication Instructions Recorded acetaminophen 325 mg tablet 650 mg PO TID #60 tabs 10/10/20 aspirin 81 mg tablet,delayed 81 mg PO BID #60 tabs 10/10/20 release docusate sodium 100 mg capsule 100 mg PO BID #20 caps 10/10/20 (DOK) ibuprofen 400 mg tablet 400 mg PO Q4HR #60 tabs 10/10/20 ondansetron 4 mg disintegrating 4 mg PO Q4HR PRN Nausea #20 tabs 10/10/20 tablet oxycodone 5 mg tablet 5 mg PO Q3HR PRN Pain, Moderate 10/10/20 (4-6) #40 tabs polyethylene glycol 3350 17 gram 17 gm PO DAILY PRN Constipation 10/10/20 oral powder packet #20 ea Allergies Allergy/AdvReac Type Severity Reaction Status Date / Time No Known Drug Allergies Allergy Verified 10/09/20 06:39 Review of Systems Review of Systems ROS Unobtainable: All systems reviewed & are unremarkable except as noted in HPI and below Patient History Medical History Biceps muscle tear Concussion (~2019) Headache, migraine Hypothyroid Obesity Unilateral primary osteoarthritis, left knee Surgical History H/O laparoscopy History of History of cholecystectomy History of left inguinal hernia repair Status post right rotator cuff repair Social History household members: spouse Smoking Status: Never smoker alcohol intake: former Smoking Status: Never smoker alcohol intake frequency: 0-2 drinks per day Substance Use Type: does not use Exam Initial Vital Signs Initial Vital Signs: Vital Signs Temperature 97.8 F 07/06/22 12:44 Pulse Rate 74 07/06/22 12:44 Respiratory Rate 18 07/06/22 12:44 Blood Pressure 156/80 H 07/06/22 12:44 Pulse Oximetry 99 07/06/22 12:44 Oxygen Delivery Method 07/06/22 12:44 Const General: cooperative, comfortable, well developed and No ill appearing HENMS Head: normal to inspection, normocephalic and No abrasion Eyes General: Yes appearance normal, both eyes and all related structures Visual Zheng: normal visual zheng by confrontation Pupils: PERRL EOM: EOM intact bilaterally Resp Effort & Inspection: normal respiratory effort Auscultation: clear to auscultation bilaterally Cardio Rate: regular rate Rhythm: regular rhythm GI Inspection: normal to inspection Palpation: soft and No tender Skin General: no rashes or lesions noted Neuro General: patient alert, patient awake, patient oriented x3, tone normal and moves all extremities Cranial Nerves: other (Cranial nerves intact except for subjective tingling to right cheek) Cognition: normal cognition Speech: abnormal speech (Dysarthria) and expressive aphasia Motor: muscle tone normal throughout Sensory Exam: no sensory deficits noted (Subjective tingling to right cheek) Coordination: zlohwy-pp-kznk test normal and djjb-jl-kbey test normal Extrem General: normal to inspection and capillary refill normal Psych Appearance: grossly normal and well kempt Scores [employer] [place] coma scale eye opening: Spontaneous Lior coma scale verbal response: Orientated Lior coma scale motor response: Obey commands Lior coma scale total score: 15 NIH Stroke Scale Level of Conciousness: Alert, keenly responsive Ask month/age: Answers both questions correctly. Open/close eyes, close hand: Performs both tasks correctly Best gaze horizontal: Normal Visual zhneg: No visual loss Facial palsy: Normal symetrical movement Left arm drift: No drift for full 10 sec Right arm drift: No drift for full 10 sec Left leg drift: No drift for full 5 sec Right leg drift: No drift for full 5 sec Limb ataxia: Absent Sensory on face/arms/legs: Mild to moderate sensory loss, can tell touch Best language: No aphasia, normal Dysarthria: Mild to mod,some slurring Extinction or inattention: No abnormality Total NIH Stroke scale score: 2 Course Orders Ordered: ED Orders 07/06/22 12:[address] angio head and neck Stat 07/06/22 12:25 EKG-12 Lead Stat 07/06/22 12:32 Complete Blood Count AUTO DIFF Stat Comprehensive Metabolic Panel Stat Ethanol (ETOH) Stat Lipase Stat Partial Thromboplastin Time Stat Prothrombin Time INR Stat Troponin & CK Cardiac Panel Stat 07/06/22 12:44 COVID19 -Nasal RAPID/Pre-Proc Stat Sodium Chloride (Normal Saline 0.9%) 1,000 mls @ 125 mls/hr IV CONT RYDER Last Admin: 07/06/22 13:26 Dose: 125 mls/hr Documented By: RICH Vital Signs Vital signs: Vital Signs - 8 hr 07/06/22 12:44 07/06/22 12:47 07/06/22 12:50 Temperature 97.8 F Pulse Rate 74 74 Respiratory Rate 18 11 L Blood Pressure 156/80 H 144/75 H Pulse Oximetry 99 98 Oxygen Delivery Method Room Air Room Air 07/06/22 12:50 07/06/22 12:55 07/06/22 12:55 Temperature Pulse Rate 71 74 Respiratory Rate 17 Blood Pressure 152/73 H Pulse Oximetry 99 98 Oxygen Delivery Method Room Air Room Air 07/06/22 13:00 Temperature Pulse Rate 78 Respiratory Rate 20 Blood Pressure Pulse Oximetry 98 Oxygen Delivery Method Room Air MDM - Neuro Symptoms/Deficit Lab Data Attestation: I reviewed the patient's lab results. Result diagrams: 07/06/22 12:32 07/06/22 12:32 Labs: Lab Results 07/06/22 07/06/22 07/06/22 Range/Units 12:32 12:32 12:32 WBC 6.5 (4.5-11.0) X10^3/uL RBC 4.96 (4.0-5.2) X10^6/uL Hgb 14.4 (12.0-16.0) g/dL Hct 42.6 (36-46) % MCV 85.8 (80-100) fL MCH 29.1 (26-34) PG MCHC 33.9 (30-36) % RDW 14.3 (11.6-14.8) % Plt Count 241 (150-400) X10^3/uL Neut % (Auto) 70.5 (50-75) % Lymph % (Auto) 21.2 L (25-40) % [place] % (Auto) 5.2 (3-14) % Eos % (Auto) 1.8 L (2-4) % Baso % (Auto) 1.3 (0-2) % Neut # (Auto) 4600 (7272-8615) /uL Lymph # (Auto) 1400 (1784-8995) /uL [place] # (Auto) 300 (0-900) /uL Eos # (Auto) 100 (0-450) /uL Baso # (Auto) 100 (0-100) /uL PT 10.7 (10.1-12.7) SECONDS INR 0.9 (0.9-1.3) APTT 32 (26-36) SECONDS Sodium 141 (137-145) mmol/L Potassium 4.1 (3.4-5.1) mmol/L Chloride 107 (98-107) mmol/L Carbon Dioxide 22 (22-32) mmol/L BUN 17 (7-17) mg/dL Creatinine 0.69 (0.52-1.04) mg/dL Estimated GFR > 60 (>60) mL/min BUN/Creatinine Ratio 24.6 H (6-22) Glucose 93 (80-110) mg/dL Calcium 9.1 (8.4-10.2) mg/dL Total Bilirubin 0.3 (0.2-1.3) mg/dL AST 29 (14-36) IU/L ALT 26 (<35) IU/L Alkaline Phosphatase 108 (38-126) U/L Total Creatine Kinase 51 (30-135) U/L CK-MB (CK-2) TNP CK-MB (CK-2) Rel Index TNP Troponin I < 0.012 (0.01-0.034) ng/mL Total Protein 8.2 (6.3-8.2) g/dL Albumin 4.6 (3.5-5.0) g/dL Globulin 3.6 (1.7-4.1) g/dL Albumin/Globulin Ratio 1.3 (1.0-2.8) Lipase 101 (23-300) U/L Ethyl Alcohol < 10 ( - 10) mg/dL SARS-CoV-2 (PCR) (Negative) 07/06/22 Range/Units 12:44 WBC (4.5-11.0) X10^3/uL RBC (4.0-5.2) X10^6/uL Hgb (12.0-16.0) g/dL Hct (36-46) % MCV (80-100) fL MCH (26-34) PG MCHC (30-36) % RDW (11.6-14.8) % Plt Count (150-400) X10^3/uL Neut % (Auto) (50-75) % Lymph % (Auto) (25-40) % [place] % (Auto) (3-14) % Eos % (Auto) (2-4) % Baso % (Auto) (0-2) % Neut # (Auto) (8089-9254) /uL Lymph # (Auto) (8783-7061) /uL [place] # (Auto) (0-900) /uL Eos # (Auto) (0-450) /uL Baso # (Auto) (0-100) /uL PT (10.1-12.7) SECONDS INR (0.9-1.3) APTT (26-36) SECONDS Sodium (137-145) mmol/L Potassium (3.4-5.1) mmol/L Chloride (98-107) mmol/L Carbon Dioxide (22-32) mmol/L BUN (7-17) mg/dL Creatinine (0.52-1.04) mg/dL Estimated GFR (>60) mL/min BUN/Creatinine Ratio (6-22) Glucose (80-110) mg/dL Calcium (8.4-10.2) mg/dL Total Bilirubin (0.2-1.3) mg/dL AST (14-36) IU/L ALT (<35) IU/L Alkaline Phosphatase (38-126) U/L Total Creatine Kinase (30-135) U/L CK-MB (CK-2) CK-MB (CK-2) Rel Index Troponin I (0.01-0.034) ng/mL Total Protein (6.3-8.2) g/dL Albumin (3.5-5.0) g/dL Globulin (1.7-4.1) g/dL Albumin/Globulin Ratio (1.0-2.8) Lipase (23-300) U/L Ethyl Alcohol ( - 10) mg/dL SARS-CoV-2 (PCR) Negative (Negative) Point of Care Testing Glucose POC [address] scan - head: Radiologist's Impression: Close Brain CT (Signed) Masood Prajapati - 07/06/[address] [address] [address] Scan Report Signed Patient: Ronit Tang MR#: [id number] : 1950 Acct:[id number] Age/Sex: 72 / F Date of Service: 07/06/22 Loc: ED Accession Number: [id number] ?? Procedure: CT Stroke Ordering Provider: Gene Sarabia D.O. PROCEDURE:? CT STROKE ? INDICATIONS:? code stroke ? TECHNIQUE:? Noncontrast 4.5 mm thick angled axial sections acquired from the foramen magnum to the vertex, with coronal reformats.? For radiation dose reduction, the following was used:? automated exposure control, adjustment of mA and/or kV according to patient size.? ? COMPARISON:? [facility], MR, MR HEAD/BRAIN WO CON, 11/16/2019, 20:01. ? FINDINGS:? Image quality:? Mild streak artifact can be seen through the skull base. ? CSF spaces:? Basal cisterns are patent.? No extra-axial fluid collections.? The ventricles are symmetric in size and shape.? ? Brain:? No intracranial bleeds or masses.? There is cerebral volume loss for age, with resultant ventricular and sulcal prominence.? There are periventricular and deep white matter chronic small vessel ischemic changes.? There is intracranial internal carotid artery atherosclerosis.? ? Skull and face:? Calvarium and visualized facial bones appear intact, without suspicious lesions.? ? Sinuses:? Visualized sinuses and mastoids are clear.? ? ? IMPRESSION:? No acute intracranial hemorrhage is seen.? ? No acute intracranial process is seen.? ? If there is strong clinical suspicion for an acute stroke, please consider a brain MRI for further evaluation, as it is more sensitive (assuming that there is no contraindication to MRI). ? Note:? Case discussed by telephone with Dr. Sarabia at 11:39 a.m. [place] time on July 06, 2022.? ? This study fulfills neurological imaging criteria for inclusion or exclusion of acute stroke therapies based on available published neurological guidelines.? ? ? Dictated by: Masood Prajapati M.D. on 07/06/2022 at 11:36 ? ? Approved by: Masood Prajapati M.D. on 07/06/2022 at 11:40?? ECG Data Attestation: I personally reviewed and interpreted this ECG as follows: Interpretation: Sinus rhythm Ventricular rate of 75 Normal axis Normal QRS Normal QTC No ST T wave changes MDM Narrative Medical decision making narrative: Arrived in the emergency department approximately 2 hours and 45 minutes after the onset of her symptoms. She did take 2 baby aspirin prior to arrival. She did have a visual aura at the onset of symptoms with that is improved. She is not currently have a headache. Subjective tingling to the right side of her cheek but no objective findings. Patient is able to speak in the words that she was saying are understood however when she was asked to repeat the words from the stroke scale card she was unable to do so. I did discuss the case with Dr. Pruitt with stroke Neurology at the [facility] who reviewed the patient's head CT. She also reviewed the patient's CTA and stated that both were unremarkable. She evaluated the patient. We did have a discussion about tPA. Dr. Pruitt was less concerned about a stroke given her presenting symptoms. The patient even thinks that her speech has improved from the onset earlier today. We discussed risks and benefits of tPA in the decision is to hold on giving this medication. The patient did expressed understanding of this. Discussed case with Dr. Campos. We will admit for further evaluation and treatment. Discussed the need for admission with the patient. She expressed understanding and agreement as well. Discharge Plan Departure Patient Disposition: Admitted as Observation Prescriptions: No Action estradiol 1 mg Tablet 1 mg PO DAILY ascorbic acid (vitamin C) [Vitamin C] 500 mg Tablet 500 mg PO DAILY cholecalciferol (vitamin D3) [Vitamin D3] 25 mcg (1,000 unit) Capsule 25 mcg PO DAILY Multivitamin 50 Plus Tablet 1 tab PO DAILY levothyroxine [Tirosint] 25 mcg Capsule 25 mcg PO DAILY Trokendi XR 50 mg Capsule,Extended Release 24hr 50 mg PO DAILY vitamin B complex Capsule 1 cap PO DAILY zinc 50 mg Capsule 50 mg PO DAILY gabapentin 100 mg Tablet 100 mg PO BID Label Comments: for scalp/facial tingling r/t concussion acetaminophen 325 mg Tablet 650 mg PO TID Qty: 60 0RF polyethylene glycol 3350 17 gram Powder In Packet 17 gm PO DAILY PRN (Reason: Constipation) Qty: 20 0RF aspirin 81 mg Tablet,Delayed Release (Dr/Ec) 81 mg PO BID Qty: 60 0RF ibuprofen 400 mg Tablet 400 mg PO Q4HR Qty: 60 0RF docusate sodium [DOK] 100 mg Capsule 100 mg PO BID Qty: 20 0RF ondansetron 4 mg Tablet,Disintegrating 4 mg PO Q4HR PRN (Reason: Nausea) Qty: 20 0RF oxycodone 5 mg Tablet 5 mg PO Q3HR PRN (Reason: Pain, Moderate (4-6)) Qty: 40 0RF Referrals: Levi Avila MD [Primary Care Provider] - Admit Date/Time: 07/06/22 13:53
[2022-07-06 12:46] LABS: Add Manual Diff / Slide Review NO; Basophils Absolute Auto 100 /uL (0-100); Basophils Percent Auto 1.3 % (0-2); Eosinophils Absolute Auto 100 /uL (0-450); Eosinophils Percent Auto 1.8 % (2-4); Hematocrit 42.6 % (36-46); Hemoglobin 14.4 g/dL (12.0-16.0); Lymphocytes Absolute Auto 1400 /uL (1100-4500); Lymphocytes Percent Auto 21.2 % (25-40); Mean Corpuscular HGB Conc 33.9 % (30-36); Mean Corpuscular Hemoglobin 29.1 PG (26-34); Mean Corpuscular Volume 85.8 fL (80-100); Monocytes Absolute Auto 300 /uL (0-900); Monocytes Percent Auto 5.2 % (3-14); Neutrophils Absolute Auto 4600 /uL (1500-7000); Neutrophils Percent Auto 70.5 % (50-75); Platelet Count 241 X10^3/uL (150-400); Red Blood Cell Count 4.96 X10^6/uL (4.0-5.2); Red Cell Distribution Width 14.3 % (11.6-14.8); White Blood Cell Count 6.5 X10^3/uL (4.5-11.0)
[2022-07-06 12:52] LABS: INR 0.9 (0.9-1.3); Prothrombin Time 10.7 SECONDS (10.1-12.7)
[2022-07-06 12:54] LABS: PTT Partial Thromboplastin Tim 32 SECONDS (26-36)
[2022-07-06 12:58] LABS: Alanine Aminotransferase 26 IU/L (<35); Albumin 4.6 g/dL (3.5-5.0); Albumin Globulin Ratio 1.3 (1.0-2.8); Alkaline Phosphatase 108 U/L (38-126); Aspartate Aminotransferase 29 IU/L (14-36); BUN Creatinine Ratio 24.6 (6-22); Bilirubin Total 0.3 mg/dL (0.2-1.3); Blood Urea Nitrogen 17 mg/dL (7-17); Calcium 9.1 mg/dL (8.4-10.2); Carbon Dioxide 22 mmol/L (22-32); Chloride 107 mmol/L (98-107); Creatine Kinase 51 U/L (30-135); Estimated Glomerular Filt Rate > 60 mL/min (>60); Ethanol (ETOH) < 10 mg/dL; Globulin 3.6 g/dL (1.7-4.1); Glucose 93 mg/dL (80-110); HEMOLYSIS 15 (0-50); Lipase 101 U/L (23-300); Potassium 4.1 mmol/L (3.4-5.1); Sodium 141 mmol/L (137-145); Total Protein 8.2 g/dL (6.3-8.2)
[2022-07-06 13:09] LABS: Troponin I < 0.012 ng/mL (0.01-0.034)
[2022-07-06 13:11] LABS: COVID19 -Nasal RAPID Negative (Negative)
[2022-07-06] MEDS: SODIUM CHLORIDE 0.9% 1,000 ML 125 ML IV (13:26)
--- NOTE | 2022-07-06 13:58 | DI.MRI.S_ITS ---
PROCEDURE: MR HEAD/BRAIN WO CON INDICATIONS: cva vs tia TECHNIQUE: Noncontrast axial T1 spin echo, axial T2 fast spin echo, sagittal and axial FLAIR, coronal T2 fast spin echo, axial gradient echo, axial diffusion and ADC through the brain. COMPARISON: [facility], CT, CT STROKE, 07/06/2022, 13:26. [facility], MR, MR HEAD/BRAIN WO CON, 11/16/2019, 20:01. FINDINGS: Image quality: Excellent. CSF Spaces: Basal cisterns are patent. No extra-axial fluid collections. Ventricles are normal in size and shape. Brain: No intracranial masses or hemorrhage. Brainstem appears normal. Focal less than 1 cm restricted diffusion noted in the left frontal precentral gyrus and right superior parietal lobule no mass effect. Normal intravascular flow voids are present. Generalized atrophy and white matter chronic ischemic change noted. Skull and face: Calvarium has normal marrow signal. Orbits appear normal. Sinuses: Fluid in the right mastoid may be inflammatory or postinflammatory IMPRESSION: 1. 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 No associated intracranial hemorrhage or mass effect. No midline shift. 2. Fluid in the right mastoid may be inflammatory or postinflammatory Approved by: Darshan Benz M.D. on 07/06/2022 at 14:24
--- NOTE | 2022-07-06 14:44 | DI.ECHO.S_ITS ---
[facility] +---------+ : : [address] [address] : : : : [id number] : : : : Phone: [phone]+ Echocardiogram Report + + :Name: TORRI QUILES Study Date: 07/07/2022 Height: 62 in : :[facility] ReadingLocation: Weight: 225 lb : : Gender: Female BSA: 2.0 m2 : :: 1950 Age: 72 yrs BP: 139/68 mmHg: :Reason For Study: TIA VS CVA : :Ordering Physician: JANI, : :BIB Performed By: Eileen Wynne : :Referring: BIB GUNTER : + + Interpretation Summary The ejection fraction is estimated to be 60-65%. Diastolic function could not be accurately assessed due to contradictory data. The right ventricle is normal in size and function. Injection of contrast documented no interatrial shunt. There is mild mitral regurgitation. There is trace tricuspid regurgitation. Pulmonary artery pressures cannot be estimated because of the lack of a measurable TR jet velocity. Procedure: A two-dimensional transthoracic echocardiogram with color flow and Doppler was performed. The study quality was technically adequate. There is no prior echocardiogram noted for this patient. The patient was in sinus rhythm with heart rates between 65-75 bpm during the exam. Left Ventricle: The left ventricle is normal in size and wall thickness. The ejection fraction is estimated to be 60-65%. Diastolic function could not be accurately assessed due to contradictory data. Right Ventricle: The right ventricle is normal in size and function. Atria: The left atrial size is normal. Right atrial size is normal. There is no Doppler evidence for an interatrial shunt. Injection of contrast documented no interatrial shunt. Mitral Valve: The mitral valve leaflets appear mildly thickened, but open well. There is mild mitral regurgitation. Aortic Valve: The aortic valve opens well. There is no aortic valve stenosis. No aortic regurgitation is present. Tricuspid Valve: The tricuspid valve is normal in structure and function. There is trace tricuspid regurgitation. Pulmonary artery pressures cannot be estimated because of the lack of a measurable TR jet velocity. Pulmonic Valve: The pulmonic valve leaflets are thin and pliable; valve motion is normal. There is trace pulmonic regurgitation. Great Vessels: The aortic root is normal size. The dimensions of the ascending aorta are normal. The IVC is of normal diameter and collapses greater than 50% with a sniff. This suggests a low right atrial pressure of 3 mm Hg. Pericardium/ Pleura There is no pericardial effusion. There is no pleural effusion. MMode/2D Measurements & Calculations LVIDd: 4.7 cm LVOT diam: 2.1 cm LVIDs: 3.1 cm Ao root diam: 2.8 cm FS: 34.9 % asc Aorta Diam: 3.1 cm IVSd: 1.0 cm Ao Arch Diam (Prox Trans): 2.8 cm LVPWd: 0.87 cm LV may. diameter/BSA (cm/m^2): 2.3 LV sys. diameter/BSA (cm/m^2): 1.5 LA A2 area: 20.0 cm2 RA long axis: 5.2 cm LA A4 area: 16.3 cm2 RA area: 13.7 cm2 LA length (vol): 5.0 cm RA vol: 30.6 ml LA vol: 55.3 ml RA : 15.2 ml/m2 LA vol index: 27.5 ml/m2 IVC diam: 1.7 cm RVD1 (basal): 3.2 cm RVD2 (mid): 2.6 cm TAPSE: 2.4 cm Doppler Measurements & Calculations Ao V2 max: 152.6 cm/sec LVOT Max Delfino: 85.6 cm/sec Ao V2 mean: 109.2 cm/sec LV V1 max P.9 mmHg Ao max P.3 mmHg LV V1 VTI: 19.0 cm Ao mean P.1 mmHg MARISA(I,D): 2.0 cm2 Ao V2 VTI: 32.4 cm MARISA(V,D): 1.9 cm2 sev ratio: 0.59 MARISA indexed to BSA (cm^2/m^2): 1.00 MV E max delfino: 96.7 cm/sec TR max delfino: 250.9 cm/sec MV A max delfino: 109.2 cm/sec TR max P.2 mmHg MV E/A: 0.89 PA V2 max: 80.1 cm/sec Med Peak E' Delfino: 7.4 cm/sec PA V2 mean: 57.2 cm/sec E/E' med: 13.1 PA mean P.5 mmHg Lat Peak E' Delfino: 6.4 cm/sec PA pr(Accel): 13.9 mmHg E/E' lat: 15.1 E/e' average: 14.1 MV dec time: 0.21 sec SV(LVOT): 65.1 ml Reading Physician:08:56 AM
--- NOTE | 2022-07-06 16:55 | PM.HP.1 ---
History of Present Illness History of Present Illness Date Patient Seen: 07/06/22 Time Patient Seen: 16:30 Chief complaint: stroke Narrative: Ms. Tang is a 72W with PMH migraines, and hypothyroid who presents with concern for a stroke. She was fine this morning and then at 930am this morning she noted she had difficulty speaking when she went to say something to her cat. She had a visual aura, no headache. SHe had right facial tingling. She presented to the hospital having taken two aspirin prior to arrival. In the ED workup was done, vitals notable for blood pressure 150s/80s. NIH of 2. Labs notable for WBC 6.5, hgb 14.4, plts 241. INR 0.9. Creatinine 0.69. Trop negative. COVID negative. CT head showed no acute process. CTA head neck showed no acute process. ED physician did speak with telestroke neurologist. It was noted her speech was improving and TPA was decided against after discuss with neurologist, patient and ED physician. MRI did show an acute CVA which resulted outside window for TPA. She was admitted for further treatment. Family history: mother with CVA Patient History Medical History Biceps muscle tear Concussion (~2019) Headache, migraine Hypothyroid Obesity Unilateral primary osteoarthritis, left knee Surgical History H/O laparoscopy History of History of cholecystectomy History of left inguinal hernia repair Status post right rotator cuff repair Family & Social History Social History: household members spouse Prior Living Arrangements House Safety & Behavioral: Feels Safe in Current Yes Environment Been Physically Hurt or No Threatened By a Person Tobacco & Substance use: Smoking Status Never smoker alcohol intake former alcohol intake frequency 0-2 drinks per day Substance Use Type does not use Meds Home Medications and Allergies Home Medications Medication Instructions Recorded Confirmed Type ascorbic acid (vitamin C) 500 mg 500 mg PO DAILY 10/08/20 07/06/22 History tablet (Vitamin C) cholecalciferol (vitamin D3) 25 25 mcg PO DAILY 10/08/20 07/06/22 History mcg (1,000 unit) capsule (Vitamin D3) estradiol 1 mg tablet 1 mg PO DAILY 10/08/20 07/06/22 History gabapentin 100 mg tablet 100 mg PO BID 10/08/20 07/06/22 History levothyroxine 25 mcg capsule 25 mcg PO DAILY 10/08/20 07/06/22 History (Tirosint) rpujvwrgtqer-qxxxckev-deyzzs 1 tab PO DAILY 10/08/20 07/06/22 History tablet (Multivitamin 50 Plus tablet) vitamin B complex 1 cap PO DAILY 10/08/20 07/06/22 History zinc 50 mg capsule 50 mg PO DAILY 10/08/20 07/06/22 History acetaminophen 325 mg tablet 650 mg PO TID #60 tabs 10/10/20 Rx aspirin 81 mg tablet,delayed 81 mg PO BID #60 tabs 10/10/20 Rx release docusate sodium 100 mg capsule 100 mg PO BID #20 caps 10/10/20 07/06/22 Rx (DOK) ibuprofen 400 mg tablet 400 mg PO Q4HR #60 tabs 10/10/20 07/06/22 Rx ondansetron 4 mg disintegrating 4 mg PO Q4HR PRN Nausea #20 tabs 10/10/20 07/06/22 Rx tablet topiramate 50 mg tablet 50 mg PO BID 07/06/22 07/06/22 History Allergies Allergy/AdvReac Type Severity Reaction Status Date / Time No Known Drug Allergies Allergy Verified 10/09/20 06:39 Review of Systems Review of Systems Narrative: 14 systems reviewed and negative aside from what is noted in HPI Exam Vital Signs (past 8 hours): - 07/06/22 12:44 07/06/22 12:47 07/06/22 12:50 Temperature 97.8 F Pulse Rate 74 74 Respiratory Rate 18 11 L Blood Pressure 156/80 H 144/75 H Pulse Oximetry 99 98 Oxygen Delivery Method Room Air Room Air 07/06/22 12:50 07/06/22 12:55 07/06/22 12:55 Temperature Pulse Rate 71 74 Respiratory Rate 17 Blood Pressure 152/73 H Pulse Oximetry 99 98 Oxygen Delivery Method Room Air Room Air 07/06/22 13:00 07/06/22 13:21 07/06/22 13:21 Temperature Pulse Rate 78 76 Respiratory Rate 20 19 Blood Pressure 162/73 H Pulse Oximetry 98 98 Oxygen Delivery Method Room Air 07/06/22 13:26 07/06/22 13:26 07/06/22 13:30 Temperature Pulse Rate 79 81 Respiratory Rate 25 H 26 H Blood Pressure 160/74 H Pulse Oximetry 99 98 Oxygen Delivery Method 07/06/22 13:40 07/06/22 13:40 07/06/22 14:00 Temperature Pulse Rate 69 Respiratory Rate 18 Blood Pressure 151/70 H 142/67 H Pulse Oximetry 98 Oxygen Delivery Method 07/06/22 14:00 07/06/22 14:49 07/06/22 14:49 Temperature Pulse Rate 69 68 Respiratory Rate 21 13 Blood Pressure 181/74 H Pulse Oximetry 99 100 Oxygen Delivery Method 07/06/22 15:00 07/06/22 15:01 07/06/22 15:01 Temperature Pulse Rate 70 79 Respiratory Rate 16 19 Blood Pressure 202/79 H Pulse Oximetry 98 97 Oxygen Delivery Method 07/06/22 15:10 Temperature Pulse Rate 69 Respiratory Rate 19 Blood Pressure 154/72 H Pulse Oximetry 100 Oxygen Delivery Method Oxygen Delivery Method Room Air Narrative Exam Narrative: GEN: no acute distress HEENT: moist mucous membranes, PERRL NECK: trachea midline, no JVD PULM: clear bilaterally, no wheezes CV: regular rate and rhythm, no murmurs ABD: soft, nontender, nondistended, no organomegaly EXT: warm and well perfused with no edema NEURO: awake, alert, oriented, speech slowed and halted, no slurring of speech, no numbness noted or other sensory deficits, CN 2-12 intact, no facial droop, upper and lower extremities intact 5/5 strength Objective Labs Result Diagrams: 07/06/22 12:32 07/06/22 12:32 Labs: Laboratory Results - last 24 hr 07/06/22 07/06/22 07/06/22 12:32 12:32 12:32 WBC 6.5 RBC 4.96 Hgb 14.4 Hct 42.6 MCV 85.8 MCH 29.1 MCHC 33.9 RDW 14.3 Plt Count 241 Neut % (Auto) 70.5 Lymph % (Auto) 21.2 L [place] % (Auto) 5.2 Eos % (Auto) 1.8 L Baso % (Auto) 1.3 Neut # (Auto) 4600 Lymph # (Auto) 1400 [place] # (Auto) 300 Eos # (Auto) 100 Baso # (Auto) 100 PT 10.7 INR 0.9 APTT 32 Sodium 141 Potassium 4.1 Chloride 107 Carbon Dioxide 22 BUN 17 Creatinine 0.69 Estimated GFR > 60 BUN/Creatinine Ratio 24.6 H Glucose 93 Calcium 9.1 Total Bilirubin 0.3 AST 29 ALT 26 Alkaline Phosphatase 108 Total Creatine Kinase 51 CK-MB (CK-2) TNP CK-MB (CK-2) Rel Index TNP Troponin I < 0.012 Total Protein 8.2 Albumin 4.6 Globulin 3.6 Albumin/Globulin Ratio 1.3 Lipase 101 Ethyl Alcohol < 10 SARS-CoV-2 (PCR) 07/06/22 12:44 WBC RBC Hgb Hct MCV MCH MCHC RDW Plt Count Neut % (Auto) Lymph % (Auto) [place] % (Auto) Eos % (Auto) Baso % (Auto) Neut # (Auto) Lymph # (Auto) [place] # (Auto) Eos # (Auto) Baso # (Auto) PT INR APTT Sodium Potassium Chloride Carbon Dioxide BUN Creatinine Estimated GFR BUN/Creatinine Ratio Glucose Calcium Total Bilirubin AST ALT Alkaline Phosphatase Total Creatine Kinase CK-MB (CK-2) CK-MB (CK-2) Rel Index Troponin I Total Protein Albumin Globulin Albumin/Globulin Ratio Lipase Ethyl Alcohol SARS-CoV-2 (PCR) Negative Assessment & Plan Assessment & Plan narrative: 1. Acute CVA -symptoms began this am 930 with expressive aphasia -symptoms improving -NIH of 2 on admit, check q4 -not given TPA after consult with neurology in ED -MRI confirmed stroke -ordered aspirin, which is a home med, added plavix and statin -ordered PT/OT and speech therapy -ordered ECHO -keep on tele and eval for afib -ordered lipid panel, and a1c for eval for risk modification -allow permissive hypertension, possible start medication prior to dc 2. Hypothyroidism -continue synthroid 3. History of migraines -possibly related to stroke, no indication for medication currently as no headache or aura CODE: Full Proxy: Ramon Tang, I have utilized all available resources to reconcile the patient's home medications Time Spent With Patient Critical Care time: I spent a total of [] minutes of critical care time on this patient's care today; this time is exclusive of procedural time.
[2022-07-06] MEDS: ATORVASTATIN 20 MG TABLET 80 MG PO (21:13)
[2022-07-06] MEDS: SODIUM CHLORIDE 0.9% FLUSH 10 ML IV (21:14)
--- NOTE | 2022-07-06 21:46 | PC.NURSE ---
Pt requesting to take her home meds such as gabapentin and toperamide. CHIROPRACTIC DOCTOR Eliot notified and medications being held now due to her diagnosis of stroke.
[2022-07-07 04:30] VITALS: BP 139/68; PULSE 72; RESP 18; TEMP 36.5; O2SAT 95
[2022-07-07] MEDS: ACETAMINOPHEN 325 MG TABLET 650 MG PO (06:07)
[2022-07-07 07:43] LABS: Add Manual Diff / Slide Review NO; Basophils Absolute Auto 100 /uL (0-100); Basophils Percent Auto 1.2 % (0-2); Eosinophils Absolute Auto 200 /uL (0-450); Eosinophils Percent Auto 2.8 % (2-4); Hematocrit 39.6 % (36-46); Hemoglobin 13.5 g/dL (12.0-16.0); Lymphocytes Absolute Auto 1800 /uL (1100-4500); Lymphocytes Percent Auto 31.6 % (25-40); Mean Corpuscular Volume 85.2 fL (80-100); Monocytes Absolute Auto 300 /uL (0-900); Monocytes Percent Auto 6.3 % (3-14); Neutrophils Absolute Auto 3200 /uL (1500-7000); Neutrophils Percent Auto 58.1 % (50-75); Platelet Count 210 X10^3/uL (150-400); Red Blood Cell Count 4.65 X10^6/uL (4.0-5.2); Red Cell Distribution Width 14.2 % (11.6-14.8); White Blood Cell Count 5.6 X10^3/uL (4.5-11.0)
[2022-07-07 07:54] LABS: Hemoglobin A1C% w Est Avg Glu 5.7 % (4.0-6.0)
[2022-07-07] MEDS: SODIUM CHLORIDE 0.9% FLUSH 10 ML IV (08:04)
[2022-07-07] MEDS: ASPIRIN EC 81 MG TABLET PO (08:04)
[2022-07-07] MEDS: CLOPIDOGREL 75 MG TABLET PO (08:04)
[2022-07-07] MEDS: ENOXAPARIN 40 MG/0.4 ML SYRINGE SUBCUT (08:04)
--- NOTE | 2022-07-07 09:19 | CM.DANOTE ---
DCP: Case received, EMR reviewed and met with patient. Introduced self and role. Was able to obtain information regarding patient's baseline activity status prior to hospitalization. DCP assessment completed with information currently available. Patient is a 72 year old female who admitted yesterday afternoon to the care of the hospitalist team. PCP: Dr. Avila. Payer: confirmed: [employer]. Patient came to the hospital via ambulance secondary to having difficulty speaking, and right facial tingling. Patient has history of PMH migraines. Prior to coming to the hospital, she had contacted her primary care provider, and was instructed to take some aspirin. Patient did have MRI, diagnosis of Acute CVA. Patient has all therapies ordered. Met with patient in her room. She was sitting up in her chair, alert and oriented. She was able to speak at the time, denied any numbness or tingling. Confirmed that she resides in [place] with spouse, Ramon. She is independent at her baseline. She uses no DME at her baseline, and drives. Patient indicated, it didn't affect her not being able to walk. She is aware that she will be working with the therapy team today. P: DCP to continue to follow closely for needs, will see how patient does with the therapy team. Ai Kiran RN/Torpedo Specialist Discharge Planning/Care Management Discharge Assessment Start: 07/07/22 09:14 Freq: Status: Active Protocol: Document 07/07/22 09:15 (Rec: 07/07/22 09:19 [id number]) Discharge Planning Assessment Assigned Filenet Developer Ai Kiran RN/Torpedo Specialist Advance Directives? No Advance Directives on File No History Provided By Patient,Medical Record Prior Living Arrangements House Household Members spouse Type of transporation used prior to Drives own vehicle admit Independent with ADL's Yes Is patient alert and oriented? Yes Caregiver for Another No Barriers to Discharge No Discharge Plan Home Transportation Arrangement Family Referrals Initiated Other Additional Comment Patient has not yet worked with the therapy team. If patient plan is home with home health There are presigned forms if : Has signed face to face form been needed completed? Whiteboard Updated in Patient Room with Yes name and ext. # of Filenet Developer Review Status In Process Next Review Type Continued Stay Review
--- NOTE | 2022-07-07 09:40 | PT.IIE ---
Surgical History (Last Reviewed 07/06/22 @ 17:12 by Delgado Campos MD) H/O laparoscopy History of History of cholecystectomy History of left inguinal hernia repair Status post right rotator cuff repair Medical History (Last Reviewed 07/06/22 @ 17:12 by Delgado Campos MD) Biceps muscle tear Concussion (~2019) Headache, migraine Hypothyroid Obesity Unilateral primary osteoarthritis, left knee Physical Therapy Inpatient Evaluation/Re-Eval M1 PT/OT-IP Prior Functional Status Start: 07/07/22 08:52 Freq: NEEDED Status: Active Protocol: Document 07/07/22 10:00 [facility] (Rec: 07/07/22 11:06 [facility] [id number]) Medical Review Prior Functional Status Medical History Reviewed Yes Communication WNL. Pt is an effective verbal commnunicator. She is an educator with experience in elementary education. Mobility and Gait Pt typically mobilizes without assistive device. She had a L TKA 1.5 years ago. She fell down stairs in October of this year and briefly used a cane following that incident. She denies other falls. Activities of Daily Living and IADL's Independent. 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 Social History Household Members spouse Living Arrangements House Number of Floors (Floors) One Floor Number of Stairs To Enter/Railing? 4 JM with R rail ascending. Home Environment Standard Height Toilet,Walk in Shower,Built-In Shower Seat Home Equipment Straight Cane,Hand Held Shower ,Grab Bars In Shower Additional Social History Comment Ronit lives with her spouse, Ramon. 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 M2 PT-IP Current Condition Start: 07/07/22 08:52 Freq: NEEDED Status: Active Protocol: Document 07/07/22 09:40 AW (Rec: 07/07/22 10:20 AW [id number]) Physical Therapy Current Condition Current Condition Evaluation Date 07/07/22 Treatment Diagnosis acute L frontal and R parietal CVA Onset Date 07/06/22 M3 PT-IP Subjective Start: 07/07/22 08:52 Freq: NEEDED Status: Active Protocol: Document 07/07/22 09:40 AW (Rec: 07/07/22 10:20 AW [id number]) Subjective Physical Therapy Visit Type Type Initial Evaluation Visit Start Time 09:17 Visit Stop Time 09:40 Total Visit Minutes 23 Physical Therapy Visit Comments Patient Comments Pt is willing to participate with PT Patient Goals Pt hopes to return home today Therapy Pain Assessment Pain When Pain Assessed During Mobility Pain Present Pain Present Denied Pain M4 PT-IP Mobility and Gait Start: 07/07/22 08:52 Freq: NEEDED Status: Active Protocol: Document 07/07/22 09:40 AW (Rec: 07/07/22 11:53 AW [id number]) PT-Bed Mobility Assessment Sit to Supine Sit to Supine Independent PT-Transfer Assessment Sit to and From Stand Sit to and from Stand Independent Equipment Transfer Assistive Device None,Gait Belt Transfers Transfer Destination Bed Transfer Technique ambulated Transfer Ability Level of Assist Independent Comments Mobility Comments Pt was sitting up in the chair as PT arrived. She stood and ambulated in the room without assist. She notes that she has L knee pain chronically which accounts for her mild limp. She walked in the hallway before returning to the room. She transferred to supine and was left with call light in reach. Gait Assessment Gait Gait Assistance Required: Independent,Standby Assistance Distance (Feet) 300 Assistive Devices Assistive Device None,Gait Belt Orthotic/Prosthetic Devices or Brace: No Gait Deviations General Gait Pattern Antalgic,Lateral Trunk Lean Factors Limiting Gait Function Factors Limiting Gait Function Decreased Sensation,Pain Comments Gait Comments Pt walked in the halls IND and completed Dynamic Gait Index with a score of 19/24. Two points were deducted for stairs. Single points were deducted for gait level surface (antalgic gait), pivot turn, and change in gait speed. Stair Climbing Assessment Evaluation Level of Assist On Stairs Standby Assistance Devices Stair Climbing Assistive Devices Right Railing Technique/Endurance Stair Climbing Direction Ascend and Descend Stair Climbing Technique Step to Step Number of Steps Climbed 3 Query Text: Stair Climbing Set # Repetitions (reps) 2 Comments Stair Climbing Comments Pt needs rails and step-to patterning due to left knee pain. PT-Balance Assessment Sitting Balance and Reactions Static Sitting Balance Ability Normal Dynamic Sitting Balance Ability Normal Standing Balance and Reactions Static Standing Balance Ability Good Dynamic Standing Balance Ability Good Balance Tests Romberg WNL Functional Reach Test WNL Tandem Standing needs support to get into position and to hold 10 sec Functional Assessments Functional Tests Dynamic Gait Index 19/24 M5 PT-IP Objective Assessments Start: 07/07/22 08:52 Freq: NEEDED Status: Active Protocol: Document 07/07/22 09:40 AW (Rec: 07/07/22 11:53 AW [id number]) Orientation Orientation/Cognition Level of Alertness Alert Orientation Name,Day of Week,Place, Situation Language Function Ability Expressive Aphasia,Word Finding Difficulties Safety Awareness Understands Safety Issues Memory Description No Deficits Noted Comments Speech was hesitant and lacked fluidity. Word-finding was challenging. Speech content was appropriate and intelligible. Gross Range of Motion Lower Extremity ROM Assessment Within Functional Limits Strength Lower Extremity Strength Assessment Within Functional Limits Hip 4+/5 Knee R 5/5; L 4+/5 Ankle 5/5 DF Comments Strength Comments no unilateral deficit appreciated Coordination Assessment Gross Coordination Gross Coordination WNL Sensation Assessment Sensation Gross Sensation Right LE Impaired,Left LE Impaired Comments Sensation Comments Pt notes chronic neuropathy in bilateral feet up to the level of her ankles. Muscle Tone Muscle Tone WNL Yes Other Assessments Other Other Assessments Ocular motor and vestibular screenings were WNL. M6 PT-IP Treatment Start: 07/07/22 08:52 Freq: NEEDED Status: Active Protocol: Document 07/07/22 09:40 AW (Rec: 07/07/22 11:53 AW [id number]) Physical Therapy Treatment Education Education Provided Safety Other Treatments Other Treatment Performed Educated pt on signs and symptoms of CVA and need for immediate treatment. Pt understood and was able to teach back. M7 PT-IP Assessment and Plan Start: 07/07/22 08:52 Freq: NEEDED Status: Active Protocol: Document 07/07/22 09:40 AW (Rec: 07/07/22 11:53 AW [id number]) PT Summary Assessment and Plan Summary Impairments Pain,Strength,Sensation,Gait Assessment Summary Ronit is a 72 yo woman seen for PT evaluation per stroke protocol. She is independent in all regards at baseline. On assessment today, she was independent with mobility with the exception of SBA on stairs due to ongoing left knee pain. She scored 19/24 on Dynamic Gait Index which is the cutoff for increased falls risk. Pt did have an injurious fall earlier this year and her DGI score likely reflects ongoing knee pain more than any new balance impairment. Her most significant stroke-related impairment appears to be speech. She is appropriate for discharge home with assist. Frequency of Treatment Frequency Of Treatment Discharge Recommendations To Nursing Amount of Assist Needed Independent Discharge Recommendations PT Discharge Recommendations Home,Home with Assistance Transportation Needs at Discharge Private Vehicle
--- NOTE | 2022-07-07 10:43 | OT.IP.EVAL ---
Past Medical History (Last Reviewed 07/06/22 @ 17:12 by Delgado Campos MD) Biceps muscle tear Concussion (~2019) Headache, migraine Hypothyroid Obesity Unilateral primary osteoarthritis, left knee Surgical History (Last Reviewed 07/06/22 @ 17:12 by Delgado Campos MD) H/O laparoscopy History of History of cholecystectomy History of left inguinal hernia repair Status post right rotator cuff repair Occupational Therapy Inpatient Evaluation/Re-Eval M1 PT/OT-IP Prior Functional Status Start: 07/07/22 08:52 Freq: NEEDED Status: Active Protocol: Document 07/07/22 10:00 [facility] (Rec: 07/07/22 11: [facility] [id number]) Medical Review Prior Functional Status Medical History Reviewed Yes Communication WNL. Pt is an effective verbal communicator. She is an educator with experience in elementary education. Mobility and Gait Pt typically mobilizes without assistive device. She had a L TKA 1.5 years ago. She fell down stairs in October of this year and briefly used a cane following that incident. She denies other falls. Activities of Daily Living and IADL's Independent. 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 Social History Household Members spouse Living Arrangements House Number of Floors (Floors) One Floor Number of Stairs To Enter/Railing? 4 JM with R rail ascending. Home Environment Standard Height Toilet,Walk in Shower,Built-In Shower Seat Home Equipment Straight Cane,Hand Held Shower ,Grab Bars In Shower Additional Social History Comment Ronit lives with her spouse, Ramon. 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 M2 OT-IP Current Condition Start: 07/07/22 10:48 Freq: Status: Active Protocol: Document 07/07/22 10:00 [facility] (Rec: 07/07/22 11: [facility] [id number]) Occupational Therapy Current Condition Current Condition Evaluation Date 07/07/22 Treatment Diagnosis CVA, left frontal and right parietal Diagnosis Onset Date 07/06/22 M3 OT- IP Subjective and Pain Start: 07/07/22 10:48 Freq: Status: Active Protocol: Document 07/07/22 10:00 [facility] (Rec: 07/07/22 11:06 [facility] [id number]) OT- Subjective Occupational Therapy Visit Type Type Initial Evaluation Visit Start Time 10:00 Visit Stop Time 10:43 Occupational Therapy Visit Comments Patient Comments Pt agreed to do OT eval, pt's present at the end of the session. Patient/Caregiver Goals To go home OT Pain Assessment Pain When Pain Assessed At Rest Pain Present Pain Present Denied Pain M4 OT- IP ADL's Start: 07/07/22 10:48 Freq: Status: Active Protocol: Document 07/07/22 10:00 [facility] (Rec: 07/07/22 11:06 [facility] [id number]) OT [id number] Comments OT Self-Feeding Comments Not at meal time. OT ADL-Grooming Comments OT Grooming Comments Pt states did prior. OT ADL-Oral Care Comments Oral Care Comments Pt states did prior. OT ADL-Dressing General Eval Lower Body Dressing Ability Independent OT ADL-Toileting General Evaluation Toileting Ability Independent Comments OT Toileting Comments Pt has been able to use the toilet on her own. OT ADL-Bathing Comments OT Bathing Comments Pt not wanting to do at this time and preferring to do at home. M5 OT- IP IADL's Start: 07/07/22 10:48 Freq: Status: Active Protocol: Document 07/07/22 10:00 [facility] (Rec: 07/07/22 11:06 [facility] [id number]) OT-Instrumental Activities of Daily Living Home Safety Awareness Awareness of Need for Assistance at Home Good Awareness Ability to Problem Solve Emergency Able to Problem Solve Situations Medication Management Medication Management Comments At this time would be good to have her provide supervision as needed. Money Management Money Management Caregiver Provides Assistance Meal Preparation Meal Preparation Comments At this time would be good for her to provide supervision for needs as pt gets back to doing her IADl needs. Nurse Discharge Nurse Discharge Comments At this time would be good for her to provide supervision for needs as pt gets back to doing her IADl needs. Driving Driving Comments Suggested initially to have her with her if trying to get back to driving soon. M6 OT- IP Functional Cognition Start: 07/07/22 10:48 Freq: Status: Active Protocol: Document 07/07/22 10:00 [facility] (Rec: 07/07/22 11:06 [facility] [id number]) Cognitive Factors Limiting Selfcare Function Cognitive Ability Level of Alertness Alert Patient Orientation Name,Place,Situation Attention Span Ability Capable of Focused Attention, Capable of Sustained Attention Ability to Follow Commands Able to Follow Multi-Step Commands Memory Description No Deficits Noted Problem Solving Ability No deficits Noted Executive Function Ability No Deficits Noted Cognitive Comments Cognitive Assessment Comments Pt able to follow multiple step commands. Pt scored 71 seconds on [place] Making Part B which is 80% for her agre group and implies normal but not perfect for visual attention, speed of processing , executive functioning, mental flexibility, and task switching. OT- Vision and Hearing OT- Hearing Assessment OT- Hearing Assessment WFL OT- Vision Assessment Visual Acuity Glasses All The Time Visual Attentiveness WFL Occular Pursuits WFL Visual Convergence WFL Visual Zheng WFL Diplopia Absent Visual Spacial Neglect Not Applicable M7 OT- IP Mobility and Balance Start: 07/07/22 10:48 Freq: Status: Active Protocol: Document 07/07/22 10:00 [facility] (Rec: 07/07/22 11:06 [facility] [id number]) OT- Bed Mobility Assessment Supine to Sit Supine to Sit Assist Standby Assistance Sit to Supine Sit to Supine Assist Standby Assistance OT-Transfer Assessment Sit to and From Stand Sit to and from Stand Standby Assistance Transfers Transfer Ability Standby Assistance Technique Transfer Destination Bed,Car Devices Transfer Assistive Devices None Comments Mobility Comments Pt able to transfer in and out of the bed to and from the recliner with distant supervision at this time. OT- Balance Assessment Sitting Balance and Reactions Static Sitting Balance Ability Normal Dynamic Sitting Balance Ability Good Standing Balance and Reactions Static Standing Balance Ability Good M8 OT- IP Objective Assessments Start: 07/07/22 10:48 Freq: Status: Active Protocol: Document 07/07/22 10:00 [facility] (Rec: 07/07/22 11:06 [facility] [id number]) OT Gross Range of Motion Upper Extremity Range of Motion Assessment Within Functional Limits OT Strength Comments Strength Comments RUE equal strength of LUE at this time , Pt is right handed but states due to IV at her elbow hard to exert more effort. OT- Coordination Assessment Upper Extremity Finger to Nose Test Within Functional Limits Comments Coordination Comments Slightly off however due to IV in the right elbow and tight gown per pt. R hand 28.8 seconds, L hand 25 .5 second. Noted pt having slight ataxia with right hand. Pt denies having any difficulty. Right hand noted movement not as smooth and efficient, however may be affected by IV site locate at her elbow. OT-Muscle Tone Assessment Muscle Tone WNL Yes OT Sensation Assessment Comments Summary Comments Pt states right index tip and medially slightly numb. M9 OT- IP Assessment and Plan Start: 07/07/22 10:48 Freq: Status: Active Protocol: Document 07/07/22 10:00 [facility] (Rec: 07/07/22 11:06 [facility] [id number]) OT Summary Assessment and Plan Potential Rehabilitation Potential Good Analytic Complexity at Evaluation Moderate Summary OT Impairments Strength,Balance,Coordination, Bathing Progress Towards Goals Progressing Toward Goals Assessment Summary Pt MOD complexity and main barriers are expressive aphasia, slight decreased strength and fluidity of movement for RUE, and otherwise pt feels that she is doing well and at her baseline for needs. Pt has a very supportive who will be able to assist with her needed as needed. Goals Bathing Goal Independent OT-Other Goals Pt to be able to be independent to work on increasing her FMS, speed, and dexterity of right hand movements. Days to Meet Goals 5 Frequency of Treatment Frequency Of Treatment Once a Day Treatment Plan OT Treatment Plan ADL Training,Functional Mobility,Therapeutic Exercises ,Patient/Family Education, Discharge Planning Discharge Recommendations OT Discharge Recommendations Home with Assistance Transportation Needs at Discharge Private Vehicle
[2022-07-07 12:00] VITALS: BP 129/65; PULSE 70; RESP 16; TEMP 36.1; O2SAT 96
[2022-07-07 12:35] LABS: Cholesterol 188 mg/dL (140-199); HDL Cholesterol 46 mg/dL (40-60); LDL Cholesterol Calculated 87 mg/dL (<100); Triglycerides 276 mg/dL (35-150)
--- NOTE | 2022-07-07 13:34 | ST.IPSCREEN ---
Pt was reclined in bed with noon meal in front of her when JEWEL SETTER arrived. She reported no difficulty with swallowing and stated her speech has significantly improved since yesterday. Pt presented with halted speech and occasional word finding errors/difficulty. She reported speech worsens when she is stressed and is smooth when she is speaking with her . Structures were symmetrical at rest and in motion, no concerns with strength or ROM of oral mechanism. Pt reported using deep breaths and slower rate of speech to improve speech and was observed to use these strategies independently during screening. Pt will likely continue to recover speech. Recommend discharge home with referral to outpatient speech therapy. Provided pt education regarding recovery of speech following stroke, plan of care, and areas impacted by stroke. Pt expressed understanding and agreement with POC.
--- NOTE | 2022-07-07 13:54 | PC.NURSE ---
Discharge Note Patient A&O, VSS, RA, no complaints of pain/discomfort. Discharge packet reviewed with patient, all questions/concerns addressed. PIV discontinued. Patient given prescriptions to take to preferred pharmacy. Patient able to dress self and pack all belongings. Patient taken down via wheelchair to POV.
--- NOTE | 2022-07-07 15:46 | PM.DS.1 ---
History of Present Illness History of Present Illness Chief complaint: stroke Narrative: Ms. Tang is a 72W with PMH migraines, and hypothyroid who presents with concern for a stroke. She was fine this morning and then at 930am this morning she noted she had difficulty speaking when she went to say something to her cat. She had a visual aura, no headache. SHe had right facial tingling. She presented to the hospital having taken two aspirin prior to arrival. In the ED workup was done, vitals notable for blood pressure 150s/80s. NIH of 2. Labs notable for WBC 6.5, hgb 14.4, plts 241. INR 0.9. Creatinine 0.69. Trop negative. COVID negative. CT head showed no acute process. CTA head neck showed no acute process. ED physician did speak with telestroke neurologist. It was noted her speech was improving and TPA was decided against after discuss with neurologist, patient and ED physician. MRI did show an acute CVA which resulted outside window for TPA. She was admitted for further treatment. Family history: mother with CVA Discharge Providers Provider Date of admission: 07/06/22 13:53 Discharge Date: 07/07/22 Primary care physician: Levi Avila MD Consults: 07/06/22 14:44 Consult to Discharge Planning Routine Comment: Consult to Occupational Therapy Evaluate & Treat Comment: Physician Instructions: Evaluate and treat Consult to Physical Therapy Evaluate & Treat Comment: Physician Instructions: Evaluate and Treat Consult to Speech Therapy Evaluate & Treat Comment: Physician Instructions: Evaluate and treat Discharge provider: Delgado Campos MD Summary Hospital Course Discharge Diagnosis: 1. Acute CVA 2. Hypothyroidism 3. History of migraines Hospital Course: Ms. Tang was admitted for new onset neurologic symptoms, primarily difficulty with speech, expressive aphasia. This improved in the hospital. She was seen by speech therapy and recommended and arranged for outpatient speech therapy. She was seen by PT/OT as well. She was started on an aspirin and a statin. Her ECHO showed no acute process. Her telemetry showed no atrial fibrillation. Given her MRI findings there is some possibility of embolic etiology and she should follow up with PCP to consider arranging cardiac event monitoring as an outpatient. Her blood pressure was controlled in the hospital, and her A1c was normal. She should follow up with her PCP this week. Exam Vital Signs (past 8 hours): - 07/07/22 12:00 Temperature 97 F L Pulse Rate 70 Respiratory Rate 16 Blood Pressure 129/65 Pulse Oximetry 96 Oxygen Flow Rate 0 Oxygen Delivery Method Room Air Oxygen Flow Rate 0 Narrative Exam Narrative: GEN: no acute distress PULM: clear bilaterally, no wheezes CV: regular rate and rhythm, no murmurs ABD: soft, nontender, nondistended, no organomegaly EXT: warm and well perfused with no edema NEURO: awake, alert, oriented, speech slowed and halted Objective Labs Result Diagrams: 07/07/22 07:33 07/06/22 12:32 Labs: Laboratory Results - last 24 hr 07/07/22 07/07/22 07/07/22 07:33 07:33 12:10 WBC 5.6 RBC 4.65 Hgb 13.5 Hct 39.6 MCV 85.2 MCH 29.0 MCHC 34.0 RDW 14.2 Plt Count 210 Neut % (Auto) 58.1 Lymph % (Auto) 31.6 [place] % (Auto) 6.3 Eos % (Auto) 2.8 Baso % (Auto) 1.2 Neut # (Auto) 3200 Lymph # (Auto) 1800 [place] # (Auto) 300 Eos # (Auto) 200 Baso # (Auto) 100 Hemoglobin A1c 5.7 Triglycerides 276 H Cholesterol 188 LDL Cholesterol, Calc 87 HDL Cholesterol 46 PFSH Medical History Biceps muscle tear Concussion (~2019) Headache, migraine Hypothyroid Obesity Unilateral primary osteoarthritis, left knee Surgical History H/O laparoscopy History of History of cholecystectomy History of left inguinal hernia repair Status post right rotator cuff repair Social History household members: spouse Smoking Status: Never smoker alcohol intake: former Discharge Plan Discharge Plan Patient Disposition: Home Health Service Provider Discharge Comment: Ms. Tang came in to the hospital with trouble speaking. She was found to have a stroke. She improved in the hospital and should follow up with doctor this week. Discharge orders & Medications Prescriptions: New atorvastatin [Lipitor] 20 mg Tablet 80 mg PO BEDTIME Qty: 30 0RF aspirin 81 mg Tablet,Delayed Release (Dr/Ec) 81 mg PO DAILY Qty: 30 0RF Continued topiramate 50 mg tablet 50 mg PO BID Label Comments: TAKE ONE TABLET BY MOUTH TWICE DAILY estradiol 1 mg Tablet 1 mg PO DAILY ascorbic acid (vitamin C) [Vitamin C] 500 mg Tablet 500 mg PO DAILY cholecalciferol (vitamin D3) [Vitamin D3] 25 mcg (1,000 unit) Capsule 25 mcg PO DAILY Multivitamin 50 Plus Tablet 1 tab PO DAILY levothyroxine [Tirosint] 25 mcg Capsule 25 mcg PO DAILY vitamin B complex Capsule 1 cap PO DAILY zinc 50 mg Capsule 50 mg PO DAILY gabapentin 100 mg Tablet 100 mg PO BID Label Comments: for scalp/facial tingling r/t concussion acetaminophen 325 mg Tablet 650 mg PO TID Qty: 60 0RF docusate sodium [DOK] 100 mg Capsule 100 mg PO BID Qty: 20 0RF ondansetron 4 mg Tablet,Disintegrating 4 mg PO Q4HR PRN (Reason: Nausea) Qty: 20 0RF Discontinued aspirin 81 mg Tablet,Delayed Release (Dr/Ec) 81 mg PO BID Qty: 60 0RF Label Comments: patient took 2 tabs this morning ibuprofen 400 mg Tablet 400 mg PO Q4HR Qty: 60 0RF Medication counseling provided by Pharmacist: Yes Follow up/Referrals: Levi Avila MD [Primary Care Provider] - 3-5 Days Diet/Activity/Treatments Diet: Regular Visit Report/Discharge Packet Instructions: DI for Stroke-Ischemic, DI for Aphasia Discharge Data Primary Care Provider: Levi Avila Attending Provider: Delgado Campos
== END 2022-07-07 13:50 | disposition home health service (06) ==
LOC: ED 13:46 → AC 13:54
PROVIDERS: Admitting Provider Internal Medicine; Emergency Provider Emergency Medicine; PCP Family Medicine; Referring Provider Emergency Medicine; Visit Provider Internal Medicine
DX: I63.9 Cerebral infarction, unspecified (principal); H53.8 Other visual disturbances; R29.702 NIHSS score 2; E03.9 Hypothyroidism, unspecified; Z20.822 Contact with and (suspected) exposure to COVID-19
CPT/HCPCS: 36415; 70450; 70496; 70498; 70551; 80053; 80061; 80320; 82550; 82962; 83036; 83690; 84484; 85025; 85610; 85730; 87635; 93005; 93010; 93306; 96360; 96372; 97162; 97166; 99285; C9803; G0378; Q3014; J1650; Q9967

== ENCOUNTER 2023-11-05 14:37 | Emergency (ER) | payer OTHER, SELFPAY ==
[2022-07-06 16:13] VITALS: BMI 40.1
[2023-11-05] VITALS (18 sets, daily range): BP systolic 143–171; BP diastolic 70–77; PULSE 70–118; RESP 9–26; TEMP 36.9; O2SAT 93–99; BMI 41.7
--- NOTE | 2023-11-05 15:09 | DI.CT.S_ITS ---
PROCEDURE: CT HEAD/BRAIN WO CON INDICATIONS: HTN,hx stroke TECHNIQUE: Noncontrast 4.5 mm thick angled axial sections acquired from the foramen magnum to the vertex, with coronal and sagittal reformats. For radiation dose reduction, the following was used: automated exposure control, adjustment of mA and/or kV according to patient size. COMPARISON: [facility], MR, MR HEAD/BRAIN WO CON, 07/06/2022, 14:21. [facility], MR, MR HEAD/BRAIN WO CON, 11/16/2019, 20:01. [facility], CT, CT ANGIO HEAD AND NECK, 07/06/2022, 13:26. [facility], CT, CT STROKE, 07/06/2022, 13:26. FINDINGS: Image quality: Diagnostic. CSF spaces: Basal cisterns are patent. No extra-axial fluid collections. The ventricles are symmetric in size and shape. Brain: No intracranial bleeds or masses. There is cerebral volume loss for age, with resultant ventricular and sulcal prominence. There are periventricular and deep white matter chronic small vessel ischemic changes. There is intracranial internal carotid artery atherosclerosis. Skull and face: Calvarium and visualized facial bones appear intact, without suspicious lesions. Sinuses: Visualized sinuses and mastoids are clear. IMPRESSION: No acute intracranial pathology. Dictated by: Masood Prajapati M.D. on 11/05/2023 at 14:32 Approved by: Masood Prajapati M.D. on 11/05/2023 at 14:35
--- NOTE | 2023-11-05 15:10 | DI.RAD.S_ITS ---
PROCEDURE: XR CHEST 1V INDICATIONS: chest pain TECHNIQUE: One view of the chest was acquired. COMPARISON: None. FINDINGS: Surgical changes and devices: None. Lungs and pleura: Lungs are clear. No pleural effusions or pneumothorax. Mediastinum: Mediastinal contours appear normal. Heart size is normal. Bones and chest wall: No suspicious bony lesions. Overlying soft tissues appear unremarkable. IMPRESSION: No acute cardiopulmonary abnormality is seen. Dictated by: Leanna Catalan MD, PhD on 11/05/2023 at 16:00 Approved by: Leanna Catalan MD, PhD on 11/05/2023 at 16:00
[2023-11-05 15:36] LABS: Add Manual Diff / Slide Review NO; Basophils Absolute Auto 100 /uL (0-100); Basophils Percent Auto 1.1 % (0-2); Eosinophils Absolute Auto 100 /uL (0-450); Eosinophils Percent Auto 1.3 % (2-4); Hematocrit 39.9 % (36-46); Hemoglobin 13.3 g/dL (12.0-16.0); Lymphocytes Absolute Auto 1400 /uL (1100-4500); Lymphocytes Percent Auto 20.6 % (25-40); Mean Corpuscular HGB Conc 33.4 % (30-36); Mean Corpuscular Hemoglobin 28.5 PG (26-34); Mean Corpuscular Volume 85.3 fL (80-100); Monocytes Absolute Auto 400 /uL (0-900); Monocytes Percent Auto 6.3 % (3-14); Neutrophils Absolute Auto 5000 /uL (1500-7000); Neutrophils Percent Auto 70.7 % (50-75); Platelet Count 214 X10^3/uL (150-400); Red Blood Cell Count 4.67 X10^6/uL (4.0-5.2); Red Cell Distribution Width 14.6 % (11.6-14.8)
[2023-11-05 15:51] LABS: Alanine Aminotransferase 29 IU/L (<35); Albumin 4.2 g/dL (3.5-5.0); Albumin Globulin Ratio 1.3 (1.0-2.8); Alkaline Phosphatase 99 U/L (38-126); Aspartate Aminotransferase 26 IU/L (14-36); BUN Creatinine Ratio 21.2 (6-22); Bilirubin Total 0.5 mg/dL (0.2-1.3); Blood Urea Nitrogen 25 mg/dL (7-17); Calcium 9.1 mg/dL (8.4-10.2); Carbon Dioxide 19 mmol/L (22-32); Chloride 115 mmol/L (98-107); Creatine Kinase 59 U/L (30-135); Estimated Glomerular Filt Rate 49 mL/min (>60); Globulin 3.2 g/dL (1.7-4.1); Glucose 112 mg/dL (80-110); HEMOLYSIS < 15 (0-50); Lipase 96 U/L (23-300); Magnesium 1.8 mg/dL (1.6-2.3); PTT Partial Thromboplastin Tim 32 SECONDS (25.1-36.5); Potassium 3.7 mmol/L (3.4-5.1); Sodium 143 mmol/L (137-145); Total Protein 7.4 g/dL (6.3-8.2)
[2023-11-05 16:01] LABS: Prothrombin Time 11.7 SECONDS (9.4-12.5)
[2023-11-05 16:03] LABS: Troponin I < 0.012 ng/mL (0.01-0.034)
--- NOTE | 2023-11-05 17:09 | PC.NURSE ---
Pt sititng up in bed and spreaking in full sentences. Denies pain at this time and aphasia has resolved.
--- NOTE | 2023-11-05 18:15 | ED.GENADULT ---
HPI - General Adult General Chief complaint: Hypertension Stated complaint: high BP, hx of stroke Time Seen by Provider: 11/05/23 17:56 Source: patient Mode of arrival: Ambulatory History of Present Illness HPI narrative: 73-year-old female with history of hypertension, previous right-sided brain bleed presents by private vehicle for elevated blood pressure, headache, ?shaky? sensation. Patient is undergoing physical therapy for a left total knee replacement. While walking on the treadmill she felt lightheaded and went to go sit down. Physical therapist took her blood pressure and noticed that it was 155 systolic. Subsequent rechecks were even higher, with highest blood pressure reading 190 systolic. Patient states that her usual blood pressure is 130s over 60s. She does not take any blood pressure medications at home. Based on her history of stroke as well as her elevated blood pressure patient became very concerned and decided to present to the ER for evaluation. She states that currently she feels a low-grade headache, but otherwise has no other complaints. Patient states that when she was diagnosed with a stroke her presenting symptom was aphasia, however this resolved with time. Related Data Home Medications Medication Instructions Recorded Confirmed ascorbic acid (vitamin C) 500 mg 500 mg PO DAILY 10/08/20 07/06/22 tablet (Vitamin C) cholecalciferol (vitamin D3) 25 25 mcg PO DAILY 10/08/20 07/06/22 mcg (1,000 unit) capsule (Vitamin D3) estradiol 1 mg tablet 1 mg PO DAILY 10/08/20 07/06/22 gabapentin 100 mg tablet 100 mg PO BID 10/08/20 07/06/22 levothyroxine 25 mcg capsule 25 mcg PO DAILY 10/08/20 07/06/22 (Tirosint) [id number]-vhixpily-abhwmg 1 tab PO DAILY 10/08/20 07/06/22 tablet (Multivitamin 50 Plus tablet) vitamin B complex 1 cap PO DAILY 10/08/20 07/06/22 zinc 50 mg capsule 50 mg PO DAILY 10/08/20 07/06/22 topiramate 50 mg tablet 50 mg PO BID 07/06/22 07/06/22 Previous Rx's Medication Instructions Recorded acetaminophen 325 mg tablet 650 mg (2 x 325 mg) PO TID #60 tabs 10/10/20 docusate sodium 100 mg capsule 100 mg PO BID #20 caps 10/10/20 (DOK) ondansetron 4 mg disintegrating 4 mg PO Q4HR PRN Nausea #20 tabs 10/10/20 tablet aspirin 81 mg tablet,delayed 81 mg PO DAILY #30 tabs 07/07/22 release atorvastatin 20 mg tablet (Lipitor) 80 mg (4 x 20 mg) PO BEDTIME #30 07/07/22 tabs clonidine HCl 0.1 mg tablet 0.1 mg PO TID PRN hypertension #30 11/05/23 tabs Allergies Allergy/AdvReac Type Severity Reaction Status Date / Time No Known Drug Allergies Allergy Verified 10/09/20 06:39 Review of Systems Review of Systems Narrative: Negative except as noted above Patient History Medical History Concussion (~2019) Hypothyroid Biceps muscle tear Obesity Headache, migraine Unilateral primary osteoarthritis, left knee Surgical History H/O laparoscopy Status post right rotator cuff repair History of cholecystectomy History of left inguinal hernia repair History of Social History household members: spouse Smoking Status: Never smoker alcohol intake: former Smoking Status: Never smoker alcohol intake frequency: 0-2 drinks per day Substance Use Type: does not use Exam Initial Vital Signs Initial Vital Signs: Vital Signs Temperature 98.5 F 11/05/23 14:57 Pulse Rate 89 11/05/23 14:57 Respiratory Rate 18 11/05/23 14:57 Blood Pressure 166/72 H 11/05/23 14:57 Pulse Oximetry 97 11/05/23 14:57 Oxygen Delivery Method Room Air 11/05/23 14:57 Const: Awake, alert, no acute distress, nontoxic appearing Cardiac: regular rate, regular rhythm RESP: unlabored, clear bilaterally, no wheezing GI: Atraumatic, soft, nontender, nondistended, no rebound, no guarding MSK: Atraumatic, full range of motion, pulses equal Skin: Warm, Dry, intact, no rashes Neuro: AO x3, CN II-XII grossly intact, moves all extremities, gait normal Course Orders Ordered: ED Orders 11/05/23 21:05 BMP [Basic Metabolic Panel] Stat Discontinued Medications Sodium Chloride (Normal Saline 0.9%) 1,000 mls @ 1,000 mls/hr IV BOLUS ONE Stop: 11/05/23 20:07 Last Infusion: 11/05/23 20:53 Dose: Infused Documented By: Admin: 11/05/23 19:25 Dose: 1,000 mls/hr Documented By: DAMIAN Ondansetron HCl (Ondansetron 4 Mg/2 Ml Inj) 4 mg IV NOW PRN PRN Reason: Nausea And Vomiting Vital Signs Vital signs: Vital Signs - 8 hr 11/05/23 20:00 11/05/23 20:00 11/05/23 20:30 Pulse Rate 74 81 Respiratory Rate 9 L 12 Blood Pressure 158/73 H Pulse Oximetry 99 98 11/05/23 20:30 11/05/23 21:00 11/05/23 21:00 Pulse Rate 78 Respiratory Rate 16 Blood Pressure 171/74 H 143/71 H Pulse Oximetry 97 11/05/23 21:30 11/05/23 21:30 Pulse Rate 73 Respiratory Rate 17 Blood Pressure 153/72 H Pulse Oximetry 97 Medical Decision Making Differential Diagnosis Differential Diagnosis: HTN, Headache, Dizziness Lab Data 11/05/23 15:19 11/05/23 21:05 Labs: Lab Results 11/05/23 11/05/23 Range/Units 15:19 21:05 WBC 7.0 (4.5-11.0) X10^3/uL RBC 4.67 (4.0-5.2) X10^6/uL Hgb 13.3 (12.0-16.0) g/dL Hct 39.9 (36-46) % MCV 85.3 (80-100) fL MCH 28.5 (26-34) PG MCHC 33.4 (30-36) % RDW 14.6 (11.6-14.8) % Plt Count 214 (150-400) X10^3/uL Neut % (Auto) 70.7 (50-75) % Lymph % (Auto) 20.6 L (25-40) % Ness % (Auto) 6.3 (3-14) % Eos % (Auto) 1.3 L (2-4) % Baso % (Auto) 1.1 (0-2) % Neut # (Auto) 5000 (0387-4638) /uL Lymph # (Auto) 1400 (4559-3433) /uL Ness # (Auto) 400 (0-900) /uL Eos # (Auto) 100 (0-450) /uL Baso # (Auto) 100 (0-100) /uL PT 11.7 (9.4-12.5) SECONDS INR 1.0 (0.9-1.3) APTT 32 (25.1-36.5) SECONDS Sodium 143 140 (137-145) mmol/L Potassium 3.7 3.7 (3.4-5.1) mmol/L Chloride 115 H 117 H (98-107) mmol/L Carbon Dioxide 19 L 19 L (22-32) mmol/L BUN 25 H 24 H (7-17) mg/dL Creatinine 1.18 H 0.66 (0.52-1.04) mg/dL Estimated GFR 49 L > 60 (>60) mL/min BUN/Creatinine Ratio 21.2 36.4 H (6-22) Glucose 112 H 86 (80-110) mg/dL Calcium 9.1 8.6 (8.4-10.2) mg/dL Magnesium 1.8 (1.6-2.3) mg/dL Total Bilirubin 0.5 (0.2-1.3) mg/dL AST 26 (14-36) IU/L ALT 29 (<35) IU/L Alkaline Phosphatase 99 (38-126) U/L Total Creatine Kinase 59 (30-135) U/L Troponin I < 0.012 (0.01-0.034) ng/mL Total Protein 7.4 (6.3-8.2) g/dL Albumin 4.2 (3.5-5.0) g/dL Globulin 3.2 (1.7-4.1) g/dL Albumin/Globulin Ratio 1.3 (1.0-2.8) Lipase 96 (23-300) U/L Imaging Data CT scan - head: Radiologist's Impression: PROCEDURE: CT HEAD/BRAIN WO CON INDICATIONS: HTN,hx stroke TECHNIQUE: Noncontrast 4.5 mm thick angled axial sections acquired from the foramen magnum to the vertex, with coronal and sagittal reformats. For radiation dose reduction, the following was used: automated exposure control, adjustment of mA and/or kV according to patient size. COMPARISON: [facility], , MR HEAD/BRAIN WO CON, 07/06/2022, 14:21. [facility], MR, MR HEAD/BRAIN WO CON, 11/16/2019, 20:01. [facility], CT, CT ANGIO HEAD AND NECK, 07/06/2022, 13:26. [facility], CT, CT STROKE, 07/06/2022, 13:26. FINDINGS: Image quality: Diagnostic. CSF spaces: Basal cisterns are patent. No extra-axial fluid collections. The ventricles are symmetric in size and shape. Brain: No intracranial bleeds or masses. There is cerebral volume loss for age, with resultant ventricular and sulcal prominence. There are periventricular and deep white matter chronic small vessel ischemic changes. There is intracranial internal carotid artery atherosclerosis. Skull and face: Calvarium and visualized facial bones appear intact, without suspicious lesions. Sinuses: Visualized sinuses and mastoids are clear. IMPRESSION: No acute intracranial pathology. Dictated by: Masood Prajapati M.D. on 11/05/2023 at 14:32 Approved by: Masood Prajapati M.D. on 11/05/2023 at 14:35 ECG Data Interpretation: Normal sinus rhythm, rate 81 beats per minute. Normal axis, normal intervals, no STT wave changes MDM Narrative Medical decision making narrative: Headache, elevated blood pressure, lightheadedness while at physical therapy today. Patient states her primary concern is that she may have suffered another stroke and is mostly concerned with her elevated blood pressure. Patient is mildly hypertensive on arrival, neurologically intact, no focal deficits appreciated on exam. Based on patient's history of CVA as well as reported history of headache with hypertension will order a CT of the brain. Laboratory work is significant for chloride 115, CO2 19, BUN 25, creatinine 1.18, GFR 49. Previous BUN 17 and creatinine 0.69 with GFR greater than 60, however this was in 2021 and there are no recent labs lab values for comparison. This is possibly chronic, however will order 1 L of IV fluids and then plan to recheck BMP. Noncontrast head CT normal. After 1 L of IV fluids patient's creatinine improved to 0.66 with GFR greater than 60. Chloride, CO2, BUN without significant change. Patient's BUN creatinine ratio 36, up from 21, however previously patient's BUN creatinine ratio also elevated. Uncertain significance, however patient reports resolution of her symptoms, resting comfortably in bed, states she is eager to go home now that she knows that her head CT is normal. Patient was counseled on her abnormal laboratory work and I recommended close PCP follow up. Since patient does not normally take a blood pressure medication clonidine was prescribed if she notices increases in her blood pressure. ED return precautions discussed at bedside. Patient expressed understanding of the plan and is in agreement at this time. All questions answered at the time of discharge. Discharge Plan Departure Patient Disposition: Home Clinical Impression: Hypertension, Headache Instructions: DI for High Blood Pressure Activity Restrictions/Additional Instructions: Your CT today did not show any acute abnormalities. Your laboratory work did initially show a slight increase in your kidney function, however this returned to normal after getting fluids. Stay hydrated, follow up with your primary care physician. If you notice that your blood pressure is elevated at home I am prescribing a medication that you may take as needed up to 3 times daily. If you are noticing normal blood pressures at home he did not have to take this medication. Prescriptions: New clonidine HCl 0.1 mg tablet 0.1 mg PO TID PRN (Reason: hypertension) Qty: 30 0RF No Action topiramate 50 mg tablet 50 mg PO BID Patient Comments: TAKE ONE TABLET BY MOUTH TWICE DAILY atorvastatin [Lipitor] 20 mg Tablet 80 mg PO BEDTIME Qty: 30 0RF aspirin 81 mg Tablet,Delayed Release (Dr/Ec) 81 mg PO DAILY Qty: 30 0RF estradiol 1 mg Tablet 1 mg PO DAILY ascorbic acid (vitamin C) [Vitamin C] 500 mg Tablet 500 mg PO DAILY cholecalciferol (vitamin D3) [Vitamin D3] 25 mcg (1,000 unit) Capsule 25 mcg PO DAILY Multivitamin 50 Plus Tablet 1 tab PO DAILY levothyroxine [Tirosint] 25 mcg Capsule 25 mcg PO DAILY vitamin B complex Capsule 1 cap PO DAILY zinc 50 mg Capsule 50 mg PO DAILY gabapentin 100 mg Tablet 100 mg PO BID Patient Comments: for scalp/facial tingling r/t concussion acetaminophen 325 mg Tablet 650 mg PO TID Qty: 60 0RF docusate sodium [DOK] 100 mg Capsule 100 mg PO BID Qty: 20 0RF ondansetron 4 mg Tablet,Disintegrating 4 mg PO Q4HR PRN (Reason: Nausea) Qty: 20 0RF Referrals: Levi Avila MD [Primary Care Provider] - Stand Alone Forms: Patient Portal/API
[2023-11-05] MEDS: SODIUM CHLORIDE 0.9% 1,000 ML 1000 ML IV (19:25)
[2023-11-05 21:36] LABS: BUN Creatinine Ratio 36.4 (6-22); Blood Urea Nitrogen 24 mg/dL (7-17); Calcium 8.6 mg/dL (8.4-10.2); Carbon Dioxide 19 mmol/L (22-32); Chloride 117 mmol/L (98-107); Estimated Glomerular Filt Rate > 60 mL/min (>60); Glucose 86 mg/dL (80-110); HEMOLYSIS 39 (0-50); Potassium 3.7 mmol/L (3.4-5.1); Sodium 140 mmol/L (137-145)
== END 2023-11-05 21:57 | disposition home or self-care (01) ==
PROVIDERS: Emergency Medicine; Emergency Provider Emergency Medicine; PCP Family Medicine
DX: I10 Essential (primary) hypertension (principal); R51.9 Headache, unspecified; R07.9 Chest pain, unspecified
CPT/HCPCS: 36415; 70450; 71045; 80048; 80053; 82550; 83690; 83735; 84484; 85025; 85610; 85730; 93005; 93010; 96360; 99284

== ENCOUNTER 2023-11-19 15:07 | Emergency (ER) | payer OTHER, SELFPAY ==
[2022-07-06 16:13] VITALS: BMI 40.1
[2023-11-19] VITALS (7 sets, daily range): BP systolic 126–181; BP diastolic 58–84; PULSE 77–95; RESP 12–22; TEMP 36.6; O2SAT 95–97; BMI 41.7
--- NOTE | 2023-11-19 15:31 | PC.NURSE ---
Pt came to the emergency dept because while she was at PT she felt like her bp was high. Pt was recently seen in here in the emergency dept and prescribed clonidine for HTN. Pt followed up with PCP and her pcp did not fill prescription.
--- NOTE | 2023-11-19 16:12 | ED.GENADULT ---
HPI - General Adult General Chief complaint: Hypertension Stated complaint: HPB, sent by PT Time Seen by Provider: 11/19/23 16:12 Source: patient Mode of arrival: Ambulatory History of Present Illness HPI narrative: 73-year-old woman with hypothyroidism, hypertension, hyperlipidemia, stroke in July of 2022 and migraines presents with concerns for elevated blood pressure. She was seen 2 weeks ago started on clonidine for elevated blood pressure and seemed find this quite effective. She followed up with her primary physician who felt that her symptoms were more consistent with a panic attack and recommended she stop the clonidine and declined prescribing her more. She has been taking anywhere from 1-3 clonidine daily in an attempt to not run out of medications. She took 1 this morning. Went to a physical therapy visit and with exercise and slight increased pain secondary to her knee, which is why she was in physical therapy, noted that her blood pressure was becoming more elevated. It continued to escalate up to a systolic above 200 and she was feeling ?tingly?. Physical therapy recommended that she come to the emergency department for further evaluation. On arrival here blood pressure was back down to much more reasonable numbers in the symptoms that essentially resolved. Patient is requesting a refill on her clonidine prescription. She also notes she is following up with her primary care doctor tomorrow. Related Data Home Medications Medication Instructions Recorded Confirmed ascorbic acid (vitamin C) 500 mg 500 mg PO DAILY 10/08/20 07/06/22 tablet (Vitamin C) cholecalciferol (vitamin D3) 25 25 mcg PO DAILY 10/08/20 07/06/22 mcg (1,000 unit) capsule (Vitamin D3) estradiol 1 mg tablet 1 mg PO DAILY 10/08/20 07/06/22 gabapentin 100 mg tablet 100 mg PO BID 10/08/20 07/06/22 levothyroxine 25 mcg capsule 25 mcg PO DAILY 10/08/20 07/06/22 (Tirosint) pfvqiazaihoo-nzovdolr-oodlxl 1 tab PO DAILY 10/08/20 07/06/22 tablet (Multivitamin 50 Plus tablet) vitamin B complex 1 cap PO DAILY 10/08/20 07/06/22 zinc 50 mg capsule 50 mg PO DAILY 10/08/20 07/06/22 topiramate 50 mg tablet 50 mg PO BID 07/06/22 07/06/22 Previous Rx's Medication Instructions Recorded acetaminophen 325 mg tablet 650 mg (2 x 325 mg) PO TID #60 tabs 10/10/20 docusate sodium 100 mg capsule 100 mg PO BID #20 caps 10/10/20 (DOK) ondansetron 4 mg disintegrating 4 mg PO Q4HR PRN Nausea #20 tabs 10/10/20 tablet aspirin 81 mg tablet,delayed 81 mg PO DAILY #30 tabs 07/07/22 release atorvastatin 20 mg tablet (Lipitor) 80 mg (4 x 20 mg) PO BEDTIME #30 07/07/22 tabs clonidine HCl 0.1 mg tablet 0.1 mg PO TID PRN hypertension #30 11/05/23 tabs clonidine HCl 0.1 mg tablet 0.1 mg PO TID #90 tabs 11/19/23 Allergies Allergy/AdvReac Type Severity Reaction Status Date / Time No Known Drug Allergies Allergy Verified 11/19/23 15:16 Review of Systems Review of Systems Narrative: Pertinent positive and negative findings as per HPI Patient History Medical History Concussion (~2019) Hypothyroid Biceps muscle tear Obesity Headache, migraine Unilateral primary osteoarthritis, left knee Surgical History H/O laparoscopy Status post right rotator cuff repair History of cholecystectomy History of left inguinal hernia repair History of Social History household members: spouse Smoking Status: Never smoker alcohol intake: former Smoking Status: Never smoker alcohol intake frequency: 0-2 drinks per day Substance Use Type: does not use Exam Initial Vital Signs Initial Vital Signs: Vital Signs Temperature 98 F 11/19/23 15:11 Pulse Rate 95 H 11/19/23 15:11 Respiratory Rate 18 11/19/23 15:11 Blood Pressure 181/84 H 11/19/23 15:11 Pulse Oximetry 97 11/19/23 15:11 Oxygen Delivery Method Room Air 11/19/23 15:11 General: Alert appropriate in no acute distress Respiratory: Able to speak in full sentences, no obvious respiratory distress Skin: No obvious rashes, warm and dry Neurologic: Grossly intact no obvious asymmetries or abnormalities Psych: appropriate insight and affect, cooperative Course Vital Signs Vital signs: Vital Signs - 8 hr 11/19/23 15:11 11/19/23 15:20 11/19/23 15:21 Temperature 98 F Pulse Rate 95 H 89 Respiratory Rate 18 Blood Pressure 181/84 H 148/65 H Pulse Oximetry 97 95 Oxygen Delivery Method Room Air 11/19/23 15:21 11/19/23 15:30 11/19/23 15:30 Temperature Pulse Rate 87 85 Respiratory Rate 12 Blood Pressure 127/59 L Pulse Oximetry 96 96 Oxygen Delivery Method 11/19/23 16:00 11/19/23 16:00 Temperature Pulse Rate 83 Respiratory Rate 16 Blood Pressure 137/67 Pulse Oximetry 95 Oxygen Delivery Method Medical Decision Making MDM Narrative Medical decision making narrative: 73-year-old woman with admission for stroke in July of 2022, what appears to be documented hypertension with multiple blood pressures outside of the office that has responded nicely to clonidine 3 times a day. She states that she does not mind taking medication 3 times a day. She would followed up with the primary care physician who felt that the clonidine was not necessary. She did not take her mid day dose of clonidine and had an exaggerated blood pressure response to exercise and pain this afternoon. With the elevated blood pressures she was symptomatic. Full workup was not done in the emergency department today complete workup was done less than 2 weeks ago, blood pressure is down to normal and she is asymptomatic and she is following up with her primary care doctor tomorrow. At her request she has given a prescription for clonidine I also suggested that she take in written documentation of blood pressures outside of the office to discuss with her primary care doctor. Also suggested that a once a day medication or even a clonidine patch might be easier for her to manage and worth discussing with her primary care doctor. She is safe for discharge Discharge Plan Departure Patient Disposition: Home Clinical Impression: Hypertension Qualifiers: Hypertension type: primary hypertension Qualified Code(s): I10 - Essential (primary) hypertension Instructions: DI for High Blood Pressure Activity Restrictions/Additional Instructions: Thank you for coming in today You had a another example of exaggerated blood pressure response with exercise with symptomatic hypertension while at physical therapist today Your blood pressure has come down nicely Please review your blood pressure readings over the last couple of weeks with Dr. Avila when you do see him tomorrow. Things to discuss with him are is clonidine the most appropriate blood pressure medication for you, is there something that could be taken once a day that would be easier to take, clonidine does come in a patch that might also be easier. If you find that you are getting worse or develop any new symptoms, please feel free to return to the emergency department for further evaluation. Prescriptions: New clonidine HCl 0.1 mg tablet 0.1 mg PO TID Qty: 90 1RF No Action topiramate 50 mg tablet 50 mg PO BID Patient Comments: TAKE ONE TABLET BY MOUTH TWICE DAILY atorvastatin [Lipitor] 20 mg Tablet 80 mg PO BEDTIME Qty: 30 0RF aspirin 81 mg Tablet,Delayed Release (Dr/Ec) 81 mg PO DAILY Qty: 30 0RF clonidine HCl 0.1 mg tablet 0.1 mg PO TID PRN (Reason: hypertension) Qty: 30 0RF estradiol 1 mg Tablet 1 mg PO DAILY ascorbic acid (vitamin C) [Vitamin C] 500 mg Tablet 500 mg PO DAILY cholecalciferol (vitamin D3) [Vitamin D3] 25 mcg (1,000 unit) Capsule 25 mcg PO DAILY Multivitamin 50 Plus Tablet 1 tab PO DAILY levothyroxine [Tirosint] 25 mcg Capsule 25 mcg PO DAILY vitamin B complex Capsule 1 cap PO DAILY zinc 50 mg Capsule 50 mg PO DAILY gabapentin 100 mg Tablet 100 mg PO BID Patient Comments: for scalp/facial tingling r/t concussion acetaminophen 325 mg Tablet 650 mg PO TID Qty: 60 0RF docusate sodium [DOK] 100 mg Capsule 100 mg PO BID Qty: 20 0RF ondansetron 4 mg Tablet,Disintegrating 4 mg PO Q4HR PRN (Reason: Nausea) Qty: 20 0RF Referrals: Levi Avila MD [Primary Care Provider] - Stand Alone Forms: Patient Portal/API
== END 2023-11-19 16:49 | disposition home or self-care (01) ==
PROVIDERS: Emergency Provider Emergency Medicine; PCP Family Medicine
DX: I10 Essential (primary) hypertension (principal)
CPT/HCPCS: 99281

== ENCOUNTER → 2024-02-01 14:19 | Outpatient (CLI) | payer OTHER, SELFPAY ==
[2022-07-06 16:13] VITALS: BMI 40.1
--- NOTE | 2024-02-01 14:22 | DI.RAD.S_ITS ---
PROCEDURE: XR DEXA AXIAL SKELETON INDICATIONS: OSTEOPORSIS SCREENING COMPARISON: None. FINDINGS: Lumbar Spine: Bone mineral density 1.170 g/cm2, T score 1.1. Left Hip: Bone mineral density 1.058 g/cm2, T score 1.0. Left Femoral Neck: Bone mineral density 0.824 g/cm2, T score -0.2. Right Hip: Bone mineral density 1.043 g/cm2, T score 0.8. Right Femoral Neck: Bone mineral density 0.921 g/cm2, T score 0.7. Fracture Risk Calculation (when applicable): 10-year fracture risk of a major osteoporotic fracture 5.8% and of a hip fracture 0.3%. (T score greater or equal to -1.0 to: NORMAL) (T score from -1.1 to -2.4: OSTEOPENIA) (T score less than or equal to -2.5: OSTEOPOROSIS) IMPRESSION: Normal bone density. Follow-up guidelines as follows: Osteoporosis: Consider a repeat DEXA and Vertebral Fracture Assessment (VFA) exam in 2 years or sooner if medically necessary, to reassess this patient's status. Osteopenia: Consider a repeat DEXA in 2-3 years to reassess this patient's status, or if there is a new clinical indication. Normal: Consider a repeat DEXA in 5 years or sooner, or if there is a new clinical indication. All treatment decisions require clinical judgment and consideration of individual patient factors, including patient preferences, comorbidities, previous drug use, risk factors not captured in the FRAX model (e.g., frailty, falls, vitamin D deficiency, increased bone turnover, interval significant decline in bone density ) and possible under- or over-estimation of fracture risk by FRAX. In addition, the NOF Guide recommends that FDA-approved medical therapies be considered in postmenopausal women and men age >= 50 years with a: * Hip or vertebral (clinical or morphometric) fracture * T-score of <=-2.5 at the spine or hip * Ten-year fracture probability by FRAX of >= 3% for hip fracture or >=20% for major osteoporotic fracture. People with diagnosed cases of osteoporosis or at high risk for fracture should have regular bone mineral density tests. For patients eligible for Medicare, routine testing is allowed once every 2 years. The testing frequency can be increased to one year for patients who have rapidly progressing disease, those who are receiving or discontinuing medical therapy to restore bone mass, or have additional risk factors. Dictated by: Rashaad Laguerre M.D. on 02/01/2024 at 17:35 Approved by: Rashaad Laguerre M.D. on 02/01/2024 at 17:37
--- NOTE | 2024-02-01 14:22 | DI.MG.S_ITS ---
BILATERAL DIGITAL SCREENING MAMMOGRAM 3D/2D WITH CAD: 02/01/2024 CLINICAL: Routine screening. Family history of breast cancer. Comparison is made to exams dated: 10/15/2021 mammogram, 06/16/2019 mammogram - [facility], and 06/17/2015 mammogram - [facility]. Both breasts are heterogeneously dense, which may obscure small masses (category c / 51-75% glandular tissue). Current study was also evaluated with a Computer Aided Detection (CAD) system. There are benign calcifications in both breasts. There also are biopsy clips in the right breast. No significant masses, calcifications, or other findings are seen in either breast. There has been no significant interval change. IMPRESSION: BENIGN There is no mammographic evidence of malignancy. A 1 year screening mammogram is recommended. Based on the Tyrer Cuzick model (a risk assessment model) the patient's lifetime risk is 10.7% and her 10 year risk is 8.8%. According to the ACR, ACS, and NCCN guidelines, an annual breast MRI exam along with mammogram is recommended if the patient's lifetime risk is 20% or greater. This exam was interpreted at Station ID: [id number]. NOTE: For mammograms, a report in lay terms will be sent to the patient. Approximately 15% of breast malignancies will not be visualized mammographically. In the management of a palpable breast mass, a negative mammogram must not discourage biopsy of a clinically suspicious lesion. Electronically Signed By: Rashaad fields/emma:02/02/2024 07:47:57 letter sent: Normal Exam ACR BI-RADS Category 2: Benign Finding(s) [id number]
== END ==
PROVIDERS: PCP Registered Nurse; Referring Provider Registered Nurse; Visit Provider Registered Nurse
DX: Z12.31 Encounter for screening mammogram for malignant neoplasm of breast (principal); Z80.3 Family history of malignant neoplasm of breast; R92.333 Mammographic heterogeneous density, bilateral breasts; Z13.820 Encounter for screening for osteoporosis; Z78.0 Asymptomatic menopausal state
CPT/HCPCS: 77063; 77067; 77080

== ENCOUNTER → 2025-05-18 15:53 | Outpatient (ROUT) | payer OTHER, SELFPAY ==
[2022-07-06 16:13] VITALS: BMI 40.1
[2025-05-18 16:49] LABS: Influenza A - CEPHEID Flu A NEGATIVE (NEGATIVE); Influenza B - CEPHEID Flu B NEGATIVE (NEGATIVE)
[2025-05-18 17:00] LABS: COVID-19 CEPHEID 4-PLEX PCR POSITIVE (Negative)
== END ==
PROVIDERS: PCP Registered Nurse; Visit Provider Family Medicine
DX: R05.1 Acute cough (principal)
CPT/HCPCS: 87637